=== PATIENT | female | born 1985 | race Caucasian/White ===

== ENCOUNTER 2017-05-29 00:34 | Emergency (ER) | payer OTHER ==
[2017-05-29 01:10] VITALS: BP 108/74; PULSE 86; TEMP 98.7; BMI 48.3
[2017-05-29] MEDS ORDERED: SODIUM CHLORIDE 1,000 ML IV STA (01:22)
--- NOTE | 2017-05-29 01:22 | PDOC ---
History of Present Illness - History of Present Illness Initial Comments: 05/29/17 01:32 The patient is a 31 year old female, with a significant past medical history of Cholecystectomy , who presents to the emergency department with diffuse abdominal pain, nausea, vomiting, and diarrhea around 10:00 pm. Patient states she was eating popcorn earlier when she began to feel sick. She became nauseous, vomited (2x), and several episodes of diarrhea. She states she currently feels nauseous which worsens when supine. She states she took Pepto Bismol but it made her symptoms worse. Patient states associated chest discomfort while in the ER. She denies recent fevers, chills, headache or dizziness. She denies recent dysuria, frequency, urgency or hematuria. She denies recent shortness of breath. Allergies: NKA Past surgical history: Back surgery L4/L5, Lebanese butt lift/fat transfer. Social history: Nonsmoker. Denies EtOH use and recreational drug use. Primary Care Physician: Angelica Stone 05/29/17 01:52 <Beth Barragan - Last Filed: 05/29/17 01:52> <Ce Malave - Last Filed: 05/29/17 03:09> - General Chief Complaint: Nausea Stated Complaint: NAUSEA/PALPITATIONS Time Seen by Provider: 05/29/17 00:44 Past History <Beth Barragan - Last Filed: 05/29/17 01:52> - Surgical History Cholecystectomy: Yes - Suicide/Smoking/Psychosocial Hx Smoking Status: No Smoking History: Unknown if ever smoked Have you smoked in the past 12 months: No Number of Cigarettes Smoked Daily: 0 Information on smoking cessation initiated: No Hx Alcohol Use: No Drug/Substance Use Hx: No Substance Use Type: None <Ce Malave - Last Filed: 05/29/17 03:09> - Past Medical History Allergies/Adverse Reactions: Allergies Allergy/AdvReac Type Severity Reaction Status Date / Time No Known Allergies Allergy Verified 05/29/17 01:45 Home Medications: Ambulatory Orders Ondansetron [Zofran Odt -] 4 mg SL BID PRN #7 od.tablet 09/27/14 Oxycodone HCl/Acetaminophen [Percocet 5/325 -] 1 tab PO Q4H PRN 09/27/14 Nitrofurantoin Monohyd/M-Cryst [Macrobid -] 100 mg PO BID #14 capsule 09/07/15 Review of Systems - Review of Systems Comments:: 05/29/17 01:32 CONSTITUTIONAL: Absent: fever, chills, diaphoresis, generalized weakness, malaise, loss of appetite HEENT: Absent: rhinorrhea, nasal congestion, throat pain, throat swelling, difficulty swallowing, mouth swelling, ear pain, eye pain, visual Changes CARDIOVASCULAR: Present: chest discomfort Absent: chest pain, syncope, palpitations, irregular heart rate, lightheadedness , peripheral edema RESPIRATORY: Absent: cough, shortness of breath, dyspnea with exertion, orthopnea, wheezing, stridor, hemoptysis GASTROINTESTINAL: Presnt: abdominal soreness/discomfort Absent: abdominal pain, abdominal distension, nausea, vomiting, diarrhea, constipation, melena, hematochezia GENITOURINARY: Absent: dysuria, frequency, urgency, hesitancy, hematuria, flank pain, genital pain MUSCULOSKELETAL: Absent: myalgia, arthralgia, joint swelling SKIN: Absent: rash, itching, pallor HEMATOLOGIC/IMMUNOLOGIC: Absent: easy bleeding, easy bruising, lymphadenopathy, frequent infections ENDOCRINE: Absent: unexplained weight gain, unexplained weight loss, heat intolerance, cold intolerance NEUROLOGIC: Absent: headache, focal weakness or paresthesias, dizziness, unsteady gait, seizure, mental status changes, bladder or bowel incontinence PSYCHIATRIC: Absent: anxiety, depression, suicidal or homicidal ideation, hallucinations. <Beth Barragan - Last Filed: 05/29/17 01:52> *Physical Exam - Vital Signs Last Vital Signs Temp Pulse Resp BP Pulse Ox 98.7 F 86 18 108/74 98 05/29/17 01:01 05/29/17 01:01 05/29/17 01:01 05/29/17 01:01 05/29/17 01:01 - Physical Exam Comments: 05/29/17 01:32 GENERAL: Well developed, well nourished. Awake and alert. No acute distress. HEENT: Normocephalic, atraumatic. PERRLA, EOMI. No conjunctival pallor. Sclera are non- icteric. Moist mucous membranes. Oropharynx is clear. NECK: Supple. Full ROM. No JVD. Carotid pulses 2+ and symmetric, without bruits. No thyromegaly. No lymphadenopathy. CARDIOVASCULAR: Regular rate and rhythm. No murmurs, rubs, or gallops. Distal pulses are 2+ and symmetric. PULMONARY: No evidence of respiratory distress. Lungs clear to auscultation bilaterally. No wheezing, rales or rhonchi. ABDOMINAL: +diffuse abdominal discomfort. Soft. N Non-distended. No rebound or guarding. No organomegaly. Normoactive bowel sounds. MUSCULOSKELETAL Normal range of motion at all joints. No bony deformities or tenderness. No CVA tenderness. EXTREMITIES: No cyanosis. No clubbing. No edema. No calf tenderness. SKIN: Warm and dry. Normal capillary refill. No rashes. No jaundice. NEUROLOGICAL: Alert, awake, appropriate. Cranial nerves 2-12 intact. No deficits to light touch and temperature in face, upper extremities and lower extremities. No motor deficits in the in face, upper extremities and lower extremities. Normoreflexic in the upper and lower extremities. Normal speech. Toes are down-going bilaterally. Gait is normal without ataxia. PSYCHIATRIC: Cooperative. Good eye contact. Appropriate mood and affect. <Beth Barragan - Last Filed: 05/29/17 01:52> - Vital Signs Last Vital Signs Temp Pulse Resp BP Pulse Ox 98.7 F 86 18 108/74 98 05/29/17 01:01 05/29/17 01:01 05/29/17 01:01 05/29/17 01:01 05/29/17 01:01 <Ce Malave - Last Filed: 05/29/17 03:09> ED Treatment Course - LABORATORY CBC & Chemistry Diagram: 05/29/17 01:32 05/29/17 01:32 <Beth Barragan - Last Filed: 05/29/17 01:52> - LABORATORY CBC & Chemistry Diagram: 05/29/17 01:32 05/29/17 01:32 <Ce Malave - Last Filed: 05/29/17 03:09> Medical Decision Making - Medical Decision Making 05/29/17 03:02 31 yo female dev nausea,vomiting and diarrhea this eveing with diffuse abd " aching" but no focal abdominal tenderness -she vomited several times and had 3 loose stools plan IVF,zofran,reassess <Ce Malave - Last Filed: 05/29/17 03:09> *DC/Admit/Observation/Transfer - Attestations Scribe Attestion: 05/29/17 01:33 Documentation prepared by Beth Barragan, acting as medical professionals for Ce Malave MD. <Beth Barragan - Last Filed: 05/29/17 01:52> <Ce Malave - Last Filed: 05/29/17 03:09> - Referrals Referrals: Angelica Stone MD [Primary Care Provider] -
[2017-05-29] MEDS ORDERED: ONDANSETRON 4 MG/2 ML VIAL IVPUSH ONE (01:23)
[2017-05-29] MEDS ORDERED: ONDANSETRON 4 MG/2 ML VIAL ONE ×2 (01:30→04:43)
[2017-05-29 01:40] LABS: BASOPHIL 0.6 % (0-2.0); EOSINOPHIL 3.9 % (0-4.5); MCH 26.5 pg (25.7-33.7); MCHC 33.4 g/dl (32.0-36.0); MEAN CELL VOLUME 79.3 fl (80-96); MEAN PLT VOLUME 8.2 fl (7.5-11.1); NEUTROPHILS 63.3 % (42.8-82.8); PLATELET COUNT 270 K/MM3 (134-434); RDW 13.3 % (11.6-15.6); WHITE BLOOD COUNT 7.7 K/mm3 (4.0-10.0)
[2017-05-29 01:47] LABS: URINE APPEARANCE CLEAR; URINE BILIRUBIN NEGATIVE (NEGATIVE); URINE BLOOD NEGATIVE (NEGATIVE); URINE COLOR STRAW; URINE GLUCOSE (UA) NEGATIVE (NEGATIVE); URINE KETONE NEGATIVE (NEGATIVE); URINE NITRITE NEGATIVE (NEGATIVE); URINE PROTEIN NEGATIVE (NEGATIVE); URINE UROBILINOGEN NEGATIVE mg/dL (0.2-1.0)
[2017-05-29 02:11] LABS: ALBUMIN 3.7 g/dl (3.4-5.0); ANION GAP 4 (8-16); BILIRUBIN,TOTAL 0.1 mg/dL (0.2-1.0); CALCIUM 8.2 mg/dL (8.5-10.1); CO2 27 mmol/L (21-32); CREATININE 0.6 mg/dL (0.55-1.02); GLUCOSE,RANDOM 102 mg/dL (74-106); SGOT/AST 10 U/L (15-37); SGPT/ALT 15 U/L (12-78); TOT PROT 7.1 g/dl (6.4-8.2)
[2017-05-29 02:12] LABS: ALK PHOS 101 U/L (45-117)
--- NOTE | 2017-05-29 05:07 | PDOC ---
*Physical Exam - Vital Signs Last Vital Signs Temp Pulse Resp BP Pulse Ox 98.7 F 86 18 108/74 98 05/29/17 01:01 05/29/17 01:01 05/29/17 01:01 05/29/17 01:01 05/29/17 01:01 ED Treatment Course - LABORATORY CBC & Chemistry Diagram: 05/29/17 01:32 05/29/17 01:32 - ADDITIONAL ORDERS Additional order review: Laboratory Results 05/29/17 05/29/17 05/29/17 01:36 01:32 01:32 Sodium 142 Potassium 4.2 Chloride 111 H Carbon Dioxide 27 Anion Gap 4 L BUN 8 D Creatinine 0.6 Creat Clearance w eGFR > 60 Random Glucose 102 Calcium 8.2 L Total Bilirubin 0.1 L D AST 10 L D ALT 15 D Alkaline Phosphatase 101 Total Protein 7.1 Albumin 3.7 Lipase 279 Serum , Qual Negative Urine Color Straw Urine Appearance Clear Urine pH 6.0 Ur Specific [place] 1.004 Urine Protein Negative Urine Glucose (UA) Negative Urine Ketones Negative Urine Blood Negative Urine Nitrite Negative Urine Bilirubin Negative Urine Urobilinogen Negative 05/29/17 01:32 RBC 4.64 MCV 79.3 L MCHC 33.4 RDW 13.3 MPV 8.2 Neutrophils % 63.3 Lymphocytes % 24.0 D Monocytes % 8.2 Eosinophils % 3.9 Basophils % 0.6 - Medications Given in the ED: ED Medications Discontinued Medications Generic Name Dose Route Start Last Admin Trade Name Freq PRN Reason Stop Dose Admin Sodium Chloride 1,000 mls @ 1,000 mls/hr 05/29/17 01:22 05/29/17 01:39 Normal Saline - IV 05/29/17 02:21 1,000 mls/hr ASDIR STA Administration Ondansetron HCl 4 mg 05/29/17 01:23 05/29/17 01:39 Zofran Injection IVPUSH 05/29/17 01:24 4 mg ONCE ONE Administration *DC/Admit/Observation/Transfer Diagnosis at time of Disposition: Nausea, Gastritis - Discharge Dispostion Disposition: HOME Condition at time of disposition: Improved Admit: No - Prescriptions Prescriptions: Ondansetron [Zofran *Odt*] 8 mg SL BID PRN #10 od.tablet PRN Reason: Nausea And/Or Vomiting - Referrals Referrals: Angelica Stone MD [Primary Care Provider] - - Patient Instructions Printed Discharge Instructions: DI for Nausea -- Adult, DI for Gastritis - Post Discharge Activity
[2017-05-29 09:08] LABS: URINE LEUK ESTERASE Negative (NEGATIVE)
--- NOTE | 2017-05-29 11:57 | EKG ---
Test Reason : Blood Pressure : / mmHG Vent. Rate : 083 BPM Atrial Rate : 083 BPM P-R Int : 118 ms QRS Dur : 068 ms QT Int : 376 ms P-R-T Axes : 038 060 036 degrees QTc Int : 441 ms POOR DATA QUALITY, INTERPRETATION MAY BE ADVERSELY AFFECTED NORMAL SINUS RHYTHM OTHERWISE NORMAL ECG Confirmed by LENIN NUGENT, MARA ([id number]) on 05/29/2017 11:57:37 AM Referred By: Confirmed By:MARA PHELPS MD
== END 2017-05-29 05:22 | disposition home or self-care (01) ==
LOC: JER 00:34
DX: K29.70 Gastritis, unspecified, without bleeding (principal); R11.0 Nausea
CPT/HCPCS: 36415; 80053; 81003; 83690; 84703; 85025; 93005; 93010; 99281-25

== ENCOUNTER 2017-08-25 03:05 | Emergency (ER) | payer OTHER ==
[2017-08-25] MEDS ORDERED: ONDANSETRON 4 MG/2 ML VIAL IVPUSH ONE ×2 (03:37→05:05)
[2017-08-25 03:39] VITALS: BP 111/73; PULSE 97; TEMP 98.2; BMI 32.4
[2017-08-25] MEDS ORDERED: SODIUM CHLORIDE 1,000 ML IV STA (03:39)
--- NOTE | 2017-08-25 03:42 | PDOC ---
Attending Attestation - Resident Resident Name: Reynaldo Gordillo - ED Attending Attestation I have performed the following: I have examined & evaluated the patient, The case was reviewed & discussed with the resident, I agree w/resident's findings & plan - HPI HPI: 08/25/17 05:18 Pt drank too much and now she feels ill. - Physicial Exam PE: 08/25/17 05:19 Exam is normal - Medical Decision Making 08/25/17 05:19 Labs normal. Pt was hydrated with NSS and she is feeling better. D/C home
--- NOTE | 2017-08-25 03:47 | PDOC ---
History of Present Illness - General Chief Complaint: Pain, Acute Stated Complaint: VOMITING - History of Present Illness Initial Comments: Ms. Colunga is a 32yo F with a PMHx of Cholecystectomy who presents w/ abdominal pain, vomitting, and diarrhea for the past 2 hours. Pt states that she drank a small amount of alcohol in a mixed drink with eggs and coconut milk. Subsequently experienced diffuse abdominal pain, NBNB emesis, and diarrhea. Currently endorses fevers, chills, malaise. Has not been able to keep anything down. Pt states that for the past 2 years, she started to have similar insensitivity to mixed drinks, presenting with similar symptoms of vomitting and diarrhea. During the examination, patient was holding emesis mendoza, multiple instances where she was about to vomit. PMD - Angelica Stone Allergies - NKDA SH - Nonsmoker, no drugs SgHx - Back surgery L4/L5, Liposuction, CCY Past History - Past Medical History Allergies/Adverse Reactions: Allergies Allergy/AdvReac Type Severity Reaction Status Date / Time No Known Allergies Allergy Verified 08/25/17 03:22 Home Medications: Ambulatory Orders Ondansetron [Zofran *Odt*] 8 mg SL BID PRN #14 od.tablet 08/25/17 - Surgical History Cholecystectomy: Yes - Suicide/Smoking/Psychosocial Hx Smoking Status: No Smoking History: Never smoked Have you smoked in the past 12 months: No Number of Cigarettes Smoked Daily: 0 Information on smoking cessation initiated: No Hx Alcohol Use: No Drug/Substance Use Hx: No Substance Use Type: None *Physical Exam - Vital Signs Last Vital Signs Temp Pulse Resp BP Pulse Ox 98.2 F 97 H 16 111/73 98 08/25/17 03:19 08/25/17 03:19 08/25/17 03:19 08/25/17 03:19 08/25/17 03:19 - Physical Exam Comments: GEN: AAOx3, Appears ill, covers over patient, in mild distress HEENT: PERRLA, EOMi CV: S1, S2, RRR LUNG: CTABL ABD: Soft, Diffuse TTP MSK: No edema, no erythema NEURO: CN 2-12 grossly intact ED Treatment Course - LABORATORY CBC & Chemistry Diagram: 08/25/17 04:09 08/25/17 04:09 Medical Decision Making - Medical Decision Making 32yo F with PMHx of CCY, presenting with multiple episdoes of vomiting and diarrhea after having a mixed drink. Similar episodes in past after similar drinks. Likely diagnosis is gastroenteritis. -- CBC, CMP -- Urine -- Zofran IVP + IVF 1L bolus Will re-evaluate 08/25/17 05:08 On re-evaluation patient feels improved. IVF still running. Still feels slightly nauseous. Will give another dose of IV Zofran and finish IVF. Will give prescription for Zofran and dispo home. Encouraged not to drink alcohol. *DC/Admit/Observation/Transfer Diagnosis at time of Disposition: Gastroenteritis and colitis, toxic - Discharge Dispostion Disposition: HOME Admit: No - Prescriptions Prescriptions: Ondansetron [Zofran *Odt*] 8 mg SL BID PRN #14 od.tablet PRN Reason: Nausea - Referrals Referrals: Angelica Stone MD [Non Staff, Medical] - 14 days - Patient Instructions Printed Discharge Instructions: DI for Viral Gastroenteritis -- Adult - Post Discharge Activity
[2017-08-25] MEDS ORDERED: ONDANSETRON 4 MG/2 ML VIAL ONE ×3 (03:56→05:19)
[2017-08-25 04:24] LABS: BASO % 1.1 % (0-2.0); EOS % 1.3 % (0-4.5); HEMATOCRIT 34.5 % (32.4-45.2); HEMOGLOBIN 11.3 GM/dL (10.7-15.3); LYMPH % 18.4 % (8-40); MCHC 32.8 g/dl (32.0-36.0); MEAN CELL VOLUME 79.2 fl (80-96); MEAN PLT VOLUME 9.2 fl (7.5-11.1); MONO % 6.1 % (3.8-10.2); NEUT % 73.1 % (42.8-82.8); PLATELET COUNT 265 K/MM3 (134-434); RBC 4.36 M/mm3 (3.60-5.2); RDW 13.6 % (11.6-15.6); WHITE BLOOD COUNT 6.9 K/mm3 (4.0-10.0)
[2017-08-25 05:09] LABS: ALBUMIN 3.6 g/dl (3.4-5.0); AMYLASE 52 U/L (25-115); ANION GAP 10 (8-16); BLOOD UREA NITROGEN 9 mg/dL (7-18); CALCIUM 8.9 mg/dL (8.5-10.1); CHLORIDE 108 mmol/L (98-107); CO2 24 mmol/L (21-32); CREATININE 0.7 mg/dL (0.55-1.02); GLUCOSE,RANDOM 96 mg/dL (74-106); LIPASE 233 U/L (73-393); SGPT/ALT 22 U/L (12-78); SODIUM 142 mmol/L (136-145)
[2017-08-25 05:10] LABS: SGOT/AST 19 U/L (15-37)
[2017-08-25 05:11] LABS: ALK PHOS 81 U/L (45-117); BILIRUBIN,TOTAL 0.2 mg/dL (0.2-1.0); TOT PROT 6.8 g/dl (6.4-8.2)
[2017-08-25] MEDS ORDERED: ALBUTEROL SO4 2.5/IPRATROPIUM 0.5 INH SOL 3 ML VIAL.NEB. NEB ONE (06:45)
== END 2017-08-25 05:30 | disposition home or self-care (01) ==
LOC: JER 03:05
PROC: 3E0337Z Introduction of Electrolytic and Water Balance Substance into Peripheral Vein, Percutaneous Approach (ICD-10-PCS; principal; 2017-08-25)
PROC: 3E033GC Introduction of Other Therapeutic Substance into Peripheral Vein, Percutaneous Approach (ICD-10-PCS; 2017-08-25)
DX: K52.1 Toxic gastroenteritis and colitis (principal)
CPT/HCPCS: 36415; 80053; 82150; 83690; 84703; 85025; 96361; 96374; 96376; 99282-25

== ENCOUNTER 2018-10-19 04:47 | Emergency (ER) | payer OTHER ==
[2018-10-19 04:59] VITALS: BMI 34.9
--- NOTE | 2018-10-19 05:22 | PDOC ---
History of Present Illness - General Chief Complaint: Pain, Acute Stated Complaint: ABD PAIN/VOMITING/DIARRHEA Time Seen by Provider: 10/19/18 05:19 - History of Present Illness Initial Comments: 10/19/18 05:21 33 yo F with h/o cholecystectomy who p/w LLQ abdominal pain, vomiting. Patient reports acute onset of worsening, crampy, spasmodic, LLQ abdominal pain, beginning 10/17/18, with no identifiable triggers. Also endorses multiple 5+ episodes of NBNB emesis and loose watery, non bloody, non mucoid stools .Decreased PO intake and appetite. Attempted Motrin for relief. Denies recent travels or sick contacts. Patient denies THORNE, vision change, palpitations, cough, wheezing, orthopena, PND , leg swelling/pain, F/C, CP, SOB, urinary complaints, hematuria, BPR, vaginal bleeding/vaginal itching, constipation, lightheadedness, weakness, sensory changes. PMHx: as noted above ROS: as noted Allergies: NKDA Past History - Past Medical History Allergies/Adverse Reactions: Allergies Allergy/AdvReac Type Severity Reaction Status Date / Time No Known Allergies Allergy Verified 10/19/18 04:58 Home Medications: Ambulatory Orders Ondansetron [Zofran *Odt*] 8 mg SL BID PRN #14 od.tablet 08/25/17 COPD: No - Surgical History Cholecystectomy: Yes - Immunization History Immunization Up to Date: Yes - Suicide/Smoking/Psychosocial Hx Smoking Status: No Smoking History: Never smoked Have you smoked in the past 12 months: No Number of Cigarettes Smoked Daily: 0 Information on smoking cessation initiated: No Hx Alcohol Use: No Drug/Substance Use Hx: No Substance Use Type: None Review of Systems - Review of Systems Comments:: 10/19/18 05:22 GENERAL/CONSTITUTIONAL: No fever or chills. No weakness. HEAD, EYES, EARS, NOSE AND THROAT: No change in vision. No ear pain or discharge. No sore throat. CARDIOVASCULAR: No chest pain or shortness of breath RESPIRATORY: No cough, wheezing, or hemoptysis. GASTROINTESTINAL: + Abdominal pain, nausea, vomiting, diarrhea. No constipation. GENITOURINARY: No dysuria, frequency, or change in urination. MUSCULOSKELETAL: No joint or muscle swelling or pain. No neck or back pain. SKIN: No rash NEUROLOGIC: No headache, vertigo, loss of consciousness, or change in strength/ sensation. ENDOCRINE: No increased thirst. No abnormal weight change HEMATOLOGIC/LYMPHATIC: No anemia, easy bleeding, or history of blood clots. ALLERGIC/IMMUNOLOGIC: No hives or skin allergy. *Physical Exam - Vital Signs Last Vital Signs Temp Pulse Resp BP Pulse Ox 98.2 F 70 18 123/60 97 10/19/18 04:58 10/19/18 04:58 10/19/18 04:58 10/19/18 04:58 10/19/18 04:58 - Physical Exam Comments: 10/19/18 05:22 GENERAL: Awake, alert, and fully oriented, in no acute distress HEAD: No signs of trauma, normocephalic, atraumatic EYES: PERRLA, EOMI, sclera anicteric, conjunctiva clear ENT: Auricles normal inspection, hearing grossly normal, nares patent, oropharynx clear without exudates. Moist mucosa NECK: Normal ROM, supple, no lymphadenopathy, JVD, or masses LUNGS: No distress, speaks full sentences, clear to auscultation bilaterally HEART: Regular rate and rhythm, normal S1 and S2, no murmurs, rubs or gallops, peripheral pulses normal and equal bilaterally. ABDOMEN: Soft, nontender, normoactive bowel sounds. No guarding, no rebound. No masses. Neg CVA ttp. EXTREMITIES : Normal inspection, Normal range of motion, no edema. No clubbing or cyanosis. NEUROLOGICAL: Cranial nerves II through XII grossly intact. Normal speech, normal gait, no focal sensorimotor deficits SKIN: Warm, Dry, normal turgor, no rashes or lesions noted Moderate Sedation - Procedure Monitoring Vital Signs: Procedure Monitoring Vital Signs Temperature 98.2 F 10/19/18 04:58 Pulse Rate 70 10/19/18 04:58 Respiratory Rate 18 10/19/18 04:58 Blood Pressure 123/60 10/19/18 04:58 O2 Sat by Pulse Oximetry (%) 97 10/19/18 04:58 ED Treatment Course - LABORATORY CBC & Chemistry Diagram: 10/19/18 05:54 10/19/18 05:54 Medical Decision Making - Medical Decision Making 10/19/18 06:02 33 yo F with h/o cholecystectomy who p/wacute onset of worsening, crampy, spasmodic, LLQ abdominal pain, vomiting, diarrhea, beginning 10/17/18. Vitals wnl, AF, A&Ox3, physical exam unremarkable. Will consider diverticulitis, cystitis, gastroenteritis, nephrolithaisis. Will provide adequate analgesia, anti-emetic control, and IVF resuscitation. Ed Course: 10/19/18 06:10 Zofran, Tylenol, NS 10/19/18 06:50 CBC,CMP: Unremarkable UA: Neg HCG: Neg Pending CTAP. Patient stable. Endorsed to day team. *DC/Admit/Observation/Transfer Diagnosis at time of Disposition: Abdominal pain Qualifiers: Abdominal location: left lower quadrant Qualified Code(s): R10.32 - Left lower quadrant pain - Discharge Dispostion Condition at time of disposition: Stable Decision to Admit order: No - Referrals Referrals: Angelica Stone MD [Primary Care Provider] - - Patient Instructions Printed Discharge Instructions: DI for Abdominal Pain-Adult Additional Instructions: Please return to the emergency department with any new or worsening symptoms or concerns. Please follow up with your primary care physician within 72 hours. - Post Discharge Activity
[2018-10-19] MEDS ORDERED: SODIUM CHLORIDE 1,000 ML IV STA (05:51)
[2018-10-19] MEDS ORDERED: ONDANSETRON 4 MG/2 ML VIAL IVPUSH ONE (05:51)
[2018-10-19] MEDS ORDERED: ACETAMINOPHEN 1000 MG/100 ML VIAL (NON FORMULARY) IVPB ONE (05:51)
[2018-10-19] MEDS ORDERED: ONDANSETRON 4 MG/2 ML VIAL ONE (06:01)
[2018-10-19] MEDS ORDERED: ACETAMINOPHEN INJECTION 100 ML IVPB ONE (06:01)
[2018-10-19 06:03] LABS: BASO % 0.6 % (0-2.0); EOS % 1.1 % (0-4.5); HEMATOCRIT 34.5 % (32.4-45.2); HEMOGLOBIN 11.7 GM/dL (10.7-15.3); LYMPH % 16.2 % (8-40); MCH 25.3 pg (25.7-33.7); MCHC 33.9 g/dl (32.0-36.0); MEAN CELL VOLUME 74.6 fl (80-96); MEAN PLT VOLUME 7.9 fl (7.5-11.1); MONO % 6.3 % (3.8-10.2); NEUT % 75.8 % (42.8-82.8); PLATELET COUNT 291 K/MM3 (134-434); RBC 4.63 M/mm3 (3.60-5.2); RDW 15.1 % (11.6-15.6); WHITE BLOOD COUNT 6.6 K/mm3 (4.0-10.0)
--- NOTE | 2018-10-19 06:18 | PDOC ---
Attending Attestation - Resident Resident Name: Jg Brian - ED Attending Attestation I have performed the following: I have examined & evaluated the patient, The case was reviewed & discussed with the resident, I agree w/resident's findings & plan, Exceptions are as noted - HPI HPI: 10/19/18 06:15 33 F with LLQ pain, nausea, vomiting, and diarrhea since yesterday. Pt reports colicky pain in her LLQ associated with diarrhea. Also endorses nausea with a few episodes of nonbloody vomiting. Endorses subjective fevers. Denies dysuria. Denies vaginal bleeding/discharge. Denies flank pain. No h/o abdominal surgeries. - Physicial Exam PE: 10/19/18 06:16 GENERAL: Awake, alert, and fully oriented, in no acute distress. HEAD: No signs of trauma EYES: PERRLA, EOMI, sclera anicteric, conjunctiva clear ENT: Auricles normal inspection, hearing grossly normal, nares patent, oropharynx clear without exudates. Moist mucosa NECK: Nontender, no stepoffs, Normal ROM, supple, no lymphadenopathy, JVD, or masses LUNGS: Breath sounds equal, clear to auscultation bilaterally. No wheezes, and no crackles HEART: Regular rate and rhythm, normal S1 and S2, no murmurs, rubs or gallops ABDOMEN: NO tenderness, normoactive bowel sounds. No guarding, no rebound. No masses EXTREMITIES: Normal range of motion, no edema. No clubbing or cyanosis. No cords, erythema, or tenderness NEUROLOGICAL: Cranial nerves II through XII intact. 5/5 strength and sensation in all extremities, Normal speech, normal gait, normal cerebellar function SKIN: Warm, Dry, normal turgor, no rashes or lesions noted. : no CMT, normal discharge, os closed - Medical Decision Making 10/19/18 06:16 33 F with LLQ pain, N+V+D. Suspect viral gastroenteritis. Given LLQ pain, will r /o colitis vs diverticulitis. Low suspicion for pelvic pathology given benign exam. - Labs, UA, UPT - CTAP - IVF, tylenol, zofran Pt signed out to oncoming attending at 7am, pending labs, imaging, and re- evaluation
[2018-10-19 06:32] LABS: ALBUMIN 3.8 g/dl (3.4-5.0); ALK PHOS 90 U/L (45-117); ANION GAP 10 MMOL/L (8-16); BILIRUBIN,TOTAL 0.2 mg/dL (0.2-1); BLOOD UREA NITROGEN 12 mg/dL (7-18); CALCIUM 8.9 mg/dL (8.5-10.1); CHLORIDE 108 mmol/L (98-107); CO2 23 mmol/L (21-32); CREATININE 0.6 mg/dL (0.55-1.3); GLUCOSE,RANDOM 101 mg/dL (74-106); SGOT/AST 16 U/L (15-37); SGPT/ALT 18 U/L (13-61); SODIUM 141 mmol/L (136-145); TOT PROT 7.4 g/dl (6.4-8.2)
[2018-10-19 06:45] LABS: URINE APPEARANCE CLEAR; URINE BILIRUBIN NEGATIVE (<2.0 mg/dL); URINE COLOR YELLOW; URINE GLUCOSE (UA) NEGATIVE (NEGATIVE); URINE KETONE 1+ (NEGATIVE); URINE LEUK ESTERASE NEGATIVE (NEGATIVE); URINE NITRITE NEGATIVE (NEGATIVE); URINE PROTEIN NEGATIVE (NEGATIVE); URINE UROBILINOGEN 0.2 mg/dL (0.2-1.0)
--- NOTE | 2018-10-19 07:52 | PDOC ---
*Physical Exam - Vital Signs Last Vital Signs Temp Pulse Resp BP Pulse Ox 98.2 F 70 18 123/60 97 10/19/18 04:58 10/19/18 04:58 10/19/18 04:58 10/19/18 04:58 10/19/18 04:58 ED Treatment Course - LABORATORY CBC & Chemistry Diagram: 10/19/18 05:54 10/19/18 05:54 - ADDITIONAL ORDERS Additional order review: Laboratory Results 10/19/18 10/19/18 10/19/18 06:34 05:54 05:54 Sodium Potassium Chloride Carbon Dioxide Anion Gap BUN Creatinine Creat Clearance w eGFR Random Glucose Calcium Total Bilirubin AST ALT Alkaline Phosphatase Total Protein Albumin Lipase 164 Serum , Qual Negative Urine Color Yellow Urine Appearance Clear Urine pH 5.0 Ur Specific [place] 1.011 Urine Protein Negative Urine Glucose (UA) Negative Urine Ketones 1+ H Urine Blood Negative Urine Nitrite Negative Urine Bilirubin Negative Urine Urobilinogen 0.2 Ur Leukocyte Esterase Negative 10/19/18 05:54 Sodium 141 Potassium 4.0 Chloride 108 H Carbon Dioxide 23 Anion Gap 10 BUN 12 Creatinine 0.6 Creat Clearance w eGFR 116.60 Random Glucose 101 Calcium 8.9 Total Bilirubin 0.2 AST 16 ALT 18 Alkaline Phosphatase 90 Total Protein 7.4 Albumin 3.8 Lipase Serum , Qual Urine Color Urine Appearance Urine pH Ur Specific [place] Urine Protein Urine Glucose (UA) Urine Ketones Urine Blood Urine Nitrite Urine Bilirubin Urine Urobilinogen Ur Leukocyte Esterase 10/19/18 05:54 RBC 4.63 MCV 74.6 L MCHC 33.9 RDW 15.1 D MPV 7.9 D Neutrophils % 75.8 Lymphocytes % 16.2 Monocytes % 6.3 Eosinophils % 1.1 Basophils % 0.6 - Medications Given in the ED: ED Medications Discontinued Medications Generic Name Dose Route Start Last Admin Trade Name Freq PRN Reason Stop Dose Admin Acetaminophen 1,000 mg 10/19/18 05:51 10/19/18 06:11 Ofirmev Injection - IVPB 10/19/18 05:52 1,000 mg ONCE ONE Administration Sodium Chloride 1,000 mls @ 1,000 mls/hr 10/19/18 05:51 10/19/18 06:11 Normal Saline - IV 10/19/18 06:50 1,000 mls/hr ASDIR STA Administration Ondansetron HCl 4 mg 10/19/18 05:51 10/19/18 06:12 Zofran Injection IVPUSH 10/19/18 05:52 4 mg ONCE ONE Administration Medical Decision Making - Medical Decision Making 10/19/18 07:[address] Brian. Patient is 33F with LLQ abdominal pain. Nontender on exam. Labs wnl, reviewed. Pending CT scan. 10/19/18 09:31 CT shows no abnormalities from [facility]. Patient reassessed, pain has resolved. Will discharge home with return precautions. *DC/Admit/Observation/Transfer Diagnosis at time of Disposition: Abdominal pain Qualifiers: Abdominal location: left lower quadrant Qualified Code(s): R10.32 - Left lower quadrant pain - Discharge Dispostion Condition at time of disposition: Stable - Referrals Referrals: Angelica Stone MD [Primary Care Provider] - - Patient Instructions Printed Discharge Instructions: DI for Abdominal Pain-Adult Additional Instructions: Please return to the emergency department with any new or worsening symptoms or concerns. Please follow up with your primary care physician within 72 hours. - Post Discharge Activity
[2018-10-19 09:46] VITALS: BP 100/58; PULSE 89; TEMP 98
== END 2018-10-19 09:46 | disposition home or self-care (01) ==
LOC: JER 04:47
PROC: 3E033GC Introduction of Other Therapeutic Substance into Peripheral Vein, Percutaneous Approach (ICD-10-PCS; principal; 2018-10-19)
PROC: 3E033NZ Introduction of Analgesics, Hypnotics, Sedatives into Peripheral Vein, Percutaneous Approach (ICD-10-PCS; 2018-10-19)
DX: R10.32 Left lower quadrant pain (principal)
CPT/HCPCS: 36415; 74177-TC; 80053; 81003; 83690; 84703; 85025; 96374; 96375; 99283-25; J0131; J7030

== ENCOUNTER 2019-06-30 20:20 | Emergency (ER) | payer OTHER ==
[2019-06-30 20:29] VITALS: BP 111/77; PULSE 72; TEMP 97.7; BMI 29.2
[2019-06-30] MEDS ORDERED: SODIUM CHLORIDE 1,000 ML IV STA (20:29)
[2019-06-30] MEDS ORDERED: KETOROLAC TROMETHAMINE 30 MG/1 ML VIAL ONE (20:41)
[2019-06-30] MEDS ORDERED: KETOROLAC TROMETHAMINE 30 MG/1 ML VIAL IVPUSH ONE (20:44)
[2019-06-30 21:31] LABS: EPITHELIAL CELLS FEW /hpf
[2019-06-30] MEDS ORDERED: cefTRIAXone SODIUM 1 GM VIAL ONE (23:04)
[2019-06-30] MEDS ORDERED: CEFTRIAXONE 1,000 MG in DEXTROSE 5%-WATER - 50 ML IVPB ONE (23:04)
--- NOTE | 2019-07-01 03:23 | PDOC ---
Documentation entered by Irma Kelly SCRIBE, acting as scribe for Paty Mendiola MD. Paty Mendiola MD: This documentation has been prepared by the milieRobin Joy, SCRIBE, under my direction and personally reviewed by me in its entirety. I confirm that the documentation accurately reflects all work, treatment, procedures, and medical decision making performed by me. History of Present Illness - General Chief Complaint: Pain, Acute Stated Complaint: LEFT FLANK PAIN, BLOOD IN URINE History Source: Patient Exam Limitations: No Limitations - History of Present Illness Initial Comments: 06/30/19 21:32 The patient is a 33 year old female with significant past medical history of cholecystectomy who presents to the ED today with evaluation of left flank pain and microscopic hematuria from an urgent care. As per patient, she started feeling vaginal discomfort x1 week ago with urinary frequency and burning. Patient endorses pain started to slowly radiate higher up to her left flank since. Patient describes the pain as being knocked off her feet sort of pain and was unable to work. Patient adds that today she has chills, shaking, and loss of appetite. As per patient, her last menstrual cycle was 1-2 weeks ago. Patient states she is with one sexual partner. Patient denies any medication, condom use or contraceptives. Patient adds she has a history of UTI. The patient denies chest pain, shortness of breath, headache and dizziness. Denies fever, nausea, vomiting, diarrhea and constipation. Denies vaginal discharge. Allergies: NKA Surgical History: cholecystectomy, back and cosmetic surgery. Social History: No alcohol, drug, or tobacco use. Past History - Past Medical History Allergies/Adverse Reactions: Allergies Allergy/AdvReac Type Severity Reaction Status Date / Time No Known Allergies Allergy Verified 10/19/18 04:58 Home Medications: Ambulatory Orders Ondansetron [Zofran *Odt*] 8 mg SL BID PRN #14 od.tablet 08/25/17 Ciprofloxacin [Cipro (Restricted To Id)] 500 mg PO Q12H #14 tablet 06/30/19 COPD: No - Surgical History Cholecystectomy: Yes - Immunization History Immunization Up to Date: Yes - Psycho Social/Smoking Cessation Hx Smoking Status: No Smoking History: Never smoked Have you smoked in the past 12 months: No Number of Cigarettes Smoked Daily: 0 Hx Alcohol Use: No Drug/Substance Use Hx: No Substance Use Type: None Review of Systems - Review of Systems Able to Perform ROS?: Yes Comments:: 06/30/19 21:32 CONSTITUTIONAL: +chills, +shaking Absent: fever, diaphoresis, generalized weakness, malaise, loss of appetite HEENT: Absent: rhinorrhea, nasal congestion, throat pain, throat swelling, difficulty swallowing, mouth swelling, ear pain, eye pain, visual Changes CARDIOVASCULAR: Absent: chest pain, syncope, palpitations, irregular heart rate, lightheadedness , peripheral edema RESPIRATORY: Absent: cough, shortness of breath, dyspnea with exertion, orthopnea, wheezing, stridor, hemoptysis GASTROINTESTINAL: Absent: nausea, vomiting, diarrhea, constipation, melena, hematochezia GENITOURINARY: +vaginal discomfort, dysuria, frequency, urgency, microscopic hematuria, left flank pain Absent: genital pain MUSCULOSKELETAL: Absent: myalgia, arthralgia, joint swelling SKIN: Absent: rash, itching, pallor HEMATOLOGIC/IMMUNOLOGIC: Absent: easy bleeding, easy bruising, lymphadenopathy, frequent infections ENDOCRINE: Absent: unexplained weight gain, unexplained weight loss, heat intolerance, cold intolerance NEUROLOGIC: Absent: headache, focal weakness or paresthesias, dizziness, unsteady gait, seizure, mental status changes, bladder or bowel incontinence PSYCHIATRIC: Absent: anxiety, depression, suicidal or homicidal ideation, hallucinations. All systems are reviewed and negative except as noted in the HPI. 06/30/19 21:50 *Physical Exam - Vital Signs Last Vital Signs Temp Pulse Resp BP Pulse Ox 97.7 F 72 16 111/77 100 06/30/19 20:23 06/30/19 20:23 06/30/19 20:23 06/30/19 20:23 06/30/19 20:23 - Physical Exam GENERAL: Adult female, alert and oriented x3, no acute distress HEAD: Normal with no signs of trauma. EYES: PERRLA, EOMI, sclera anicteric, conjunctiva clear. ENT: Ears normal, nares patent, oropharynx clear without exudates. Moist mucous membranes. NECK: Normal range of motion, supple without lymphadenopathy, JVD, or masses. LUNGS: Breath sounds equal, clear to auscultation bilaterally. No wheezes, and no crackles. HEART:Regular rate and rhythm, normal S1 and S2 without murmur, rub or gallop. ABDOMEN:.normal bowel sounds No guarding,tenderness or rebound.No masses No distention. EXTREMITIES: Normal range of motion, no edema. No clubbing or cyanosis. No erythema, or tenderness. NEUROLOGICAL: Cranial nerves II through XII grossly intact. Normal speech. No focal neurological deficits. MUSCULOSKELETAL: Back non-tender to palpation, no CVA tenderness SKIN: Warm, Dry, normal turgor, no rashes or lesions noted. ED Treatment Course - ADDITIONAL ORDERS Additional order review: Laboratory Results 06/30/19 06/30/19 20:30 20:30 Urine Color Yellow Urine Appearance Slightly Urine pH 6.0 Urine Protein Negative Urine Glucose (UA) Negative Urine Ketones Negative Urine Blood 2+ H Urine Nitrite Negative Urine Bilirubin Negative Urine Urobilinogen 0.2 Ur Leukocyte Esterase 3+ Urine RBC 5-10 Urine WBC 40-60 Ur Transition Epith Cell Few Urine Bacteria Moderate Urine HCG, Qual Negative - RADIOLOGY Radiology Studies Ordered: Category Date Time Status SPIRAL- RENAL-STONE CT [CT] Stat CT Scan 06/30/19 21:12 Completed - Medications Given in the ED: ED Medications Discontinued Medications Generic Name Dose Route Start Last Admin Trade Name Freq PRN Reason Stop Dose Admin Sodium Chloride 1,000 mls @ 1,000 mls/hr 06/30/19 20:29 06/30/19 20:44 Normal Saline - IV 06/30/19 21:28 1,000 mls/hr ASDIR STA Administration Ketorolac Tromethamine 30 mg 06/30/19 20:44 06/30/19 20:50 Toradol Injection - IVPUSH 06/30/19 20:45 30 mg ONCE ONE Administration ED Progress Note - Progress Note Progress Note: Urinalysis consistent with UTI with WBC and RBC seen in microscopic with few epithelial cells but many bacteria Urine sent for culture and sensitivity Because patient had severe flank pain, UTI with obstruction must be ruled out: Renal stone protocol CT ordered , Renal stone protocol CT negative for evidence of ureteral stone or hydronephrosis. No evidence of perinephric inflammation or abscess. Clinical presentation most consistent with urinary tract infection, suggestive of early upper tract infection. Patient will be given 1 dose of Rocephin 1 g IV Prescription for ciprofloxacin 500 mg twice a day for 1 week sent to her pharmacy. The patient should return to the emergency room if she has worsening pain or develops high fever, vomiting Discharge - Discharge Information Problems reviewed: Yes Clinical Impression/Diagnosis: UTI (urinary tract infection) Qualifiers: Urinary tract infection type: site unspecified Hematuria presence: without hematuria Qualified Code(s): N39.0 - Urinary tract infection, site not specified Condition: Stable Disposition: HOME - Additional Discharge Information Prescriptions: Ciprofloxacin [Cipro (Restricted To Id)] 500 mg PO Q12H #14 tablet - Follow up/Referral - Patient Discharge Instructions Patient Printed Discharge Instructions: Urinary Tract Infection Additional Instructions: Rest; drink plenty of water Cipro 500 mg twice a day for 1 week; next dose tomorrow morning Tylenol/Motrin/Aleve as needed for pain No work tomorrow Return to ER if you have worsening pain/fever/vomiting Follow-up with your doctor within the next 2 to 3 days - Post Discharge Activity Work/Back to School Note: Back to Work
== END 2019-06-30 23:46 | disposition home or self-care (01) ==
LOC: FER 20:20
PROC: 3E03329 Introduction of Other Anti-infective into Peripheral Vein, Percutaneous Approach (ICD-10-PCS; principal; 2019-06-30)
PROC: 3E0333Z Introduction of Anti-inflammatory into Peripheral Vein, Percutaneous Approach (ICD-10-PCS; 2019-06-30)
PROC: 3E0337Z Introduction of Electrolytic and Water Balance Substance into Peripheral Vein, Percutaneous Approach (ICD-10-PCS; 2019-06-30)
DX: N39.0 Urinary tract infection, site not specified (principal)
CPT/HCPCS: 74176-TC; 81003; 81015; 84703; 87086; 87186; 99282-25; J7030

== ENCOUNTER 2019-11-20 15:30 | Emergency (ER) | payer OTHER ==
[2019-11-20 15:46] VITALS: BP 108/83; PULSE 83; TEMP 97.3; BMI 30.8
--- NOTE | 2019-11-20 16:20 | PDOC ---
History of Present Illness - General History Source: Patient Exam Limitations: No Limitations - History of Present Illness Initial Comments: 11/20/19 16:14 Patient is a 34-year-old female who is (with one elective more than 10 years ago) who presents to the ED with complaint of vaginal spotting for the last 3 days. The patient states she was seen on 11/16 by her SECURITY OPERATIONS MANAGER and had an ultrasound which was negative. She states yesterday her bleeding increased slightly and she saw her SECURITY OPERATIONS MANAGER again and had blood work and a repeat ultrasound. The repeat ultrasound showed a questionable left adnexal mass which was concerning for an ectopic . The patient states her beta-hCG went from 6300 on 11/16 to 6100 on 11/18. The patient states that her spotting has not changed. She denies any lower abdominal pain. She was told by her SECURITY OPERATIONS MANAGER that she may have an ectopic and may require methotrexate versus a surgical procedure. The patient was sent to the emergency department for repeat lab work. Dr. Ayala apartment leasing manager [phone] would like to be called with results. <Sunita Gonzales - Last Filed: 11/20/19 18:48> <Allegra Li - Last Filed: 11/23/19 08:15> - General Chief Complaint: Vaginal Bleeding Stated Complaint: SENT BY /GINA PREG Time Seen by Provider: 11/20/19 15:48 Past History - Past Medical History COPD: No - Surgical History Cholecystectomy: Yes - Immunization History Immunization Up to Date: Yes - Psycho Social/Smoking Cessation Hx Smoking Status: No Smoking History: Never smoked Have you smoked in the past 12 months: No Number of Cigarettes Smoked Daily: 0 Hx Alcohol Use: No Drug/Substance Use Hx: No Substance Use Type: None <Sunita Gonzales - Last Filed: 11/20/19 18:48> <Allegra Li - Last Filed: 11/23/19 08:15> - Past Medical History Allergies/Adverse Reactions: Allergies Allergy/AdvReac Type Severity Reaction Status Date / Time No Known Allergies Allergy Verified 10/19/18 04:58 Home Medications: Ambulatory Orders Ondansetron [Zofran *Odt*] 8 mg SL BID PRN #14 od.tablet 08/25/17 Ciprofloxacin [Cipro (Restricted To Id)] 500 mg PO Q12H #14 tablet 06/30/19 Review of Systems - Review of Systems Comments:: 11/20/19 16:18 - Review of Systems Able to Perform ROS?: Yes Constitutional: No: Fever, Chills, Loss of Appetite, Night Sweats, Weakness HEENTM: No: Eye Pain, Vision changes, Ear Pain, Throat Pain, Throat Swelling, Mouth Pain, Difficulty Swallowing Respiratory: No: Cough, Shortness of Breath, Wheezing, Sputum Production Cardiac (ROS): No: Chest Pain, Chest Tightness, Palpitations, Irregular Heart Beat, Edema ABD/GI: No: Nausea, Vomiting, Abdominal Pain, Diarrhea : No Dysuria, No Hematuria, No Frequency, No Urgency LOAD TESTER: Positive with vaginal spotting and left possible ectopic Musculoskeletal: No: Muscle Pain, Back Pain, Joint Pain, Muscle Weakness, Neck Pain Integumentary: No: Lesions, Rash Neurological: No: Headache, Numbness, Tingling, Weakness, Speech Difficulties <Sunita Gonzales - Last Filed: 11/20/19 18:48> *Physical Exam - Vital Signs Last Vital Signs Temp Pulse Resp BP Pulse Ox 97.3 F L 83 17 108/83 100 11/20/19 15:41 11/20/19 15:41 11/20/19 15:41 11/20/19 15:41 11/20/19 15:41 - Physical Exam 11/20/19 16:19 - Physical Exam General Appearance: Nourished, Appropriately Dressed, No Distress Neck: Supple, No Lymphadenopathy (R), No Lymphadenopathy (L), No Rigidity, No Decreased range of motion Respiratory/Chest: Lungs Clear, Normal Breath Sounds. No Respiratory Distress, No Accessory Muscle Use Cardiovascular: Regular Rhythm, Regular Rate, S1, S2 Gastrointestinal/Abdominal: Normal Bowel Sounds, Soft. Non-tender, No Guarding, No Rebound, No Rigidity LOAD TESTER: mild dark blood in the vaginal vault. Unable to palpate the cervical os, no adnexa tenderness or masses palpated, no suprapubic masses palpated and no tenderness. Musculoskeletal: Normal Inspection. No Decreased Range of Motion Extremity: Normal Capillary Refill, Normal Inspection Integumentary: Normal Color, Dry. No Rash Neurologic: machine adjuster leader II-XII NML intact, Fully Oriented, Alert, Normal Mood/Affect, Normal Response <Sunita Gonzales - Last Filed: 11/20/19 18:48> - Vital Signs Last Vital Signs Temp Pulse Resp BP Pulse Ox 97.3 F L 83 17 108/83 100 11/20/19 15:41 11/20/19 15:41 11/20/19 15:41 11/20/19 15:41 11/20/19 15:41 <Allegra Li - Last Filed: 11/23/19 08:15> ED Treatment Course - LABORATORY CBC & Chemistry Diagram: 11/20/19 14:00 11/20/19 14:00 <Sunita Gonzales D - Last Filed: 11/20/19 18:48> - LABORATORY CBC & Chemistry Diagram: 11/20/19 14:00 11/20/19 14:00 - ADDITIONAL ORDERS Additional order review: 11/20/19 14:00 RBC 4.81 MCV 79.6 L MCHC 32.2 RDW 15.2 MPV 8.0 Neutrophils % 50.2 D Lymphocytes % 38.4 D Monocytes % 8.4 Eosinophils % 2.0 D Basophils % 1.0 - Medications Given in the ED: ED Medications Discontinued Medications Generic Name Dose Route Start Last Admin Trade Name Sommer PRN Reason Stop Dose Admin Methotrexate Sodium 105 mg 11/20/19 17:38 11/20/19 18:13 Mexate Injection - 50 mg/m2 (105 mg) 11/20/19 17:39 105 mg IM Administration ONCE ONE <Allegra Li - Last Filed: 11/23/19 08:15> Medical Decision Making - Medical Decision Making 11/20/19 16:23 Assessment: Patient is a 34-year-old female with vaginal spotting for 3 days with possible ectopic . Plan: -As per her SECURITY OPERATIONS MANAGER, we will repeat the patient's lab work including an hCG quantitative. -We will discuss the case with Dr. Ayala after the values have resulted. -There is possible treatment with surgery versus methotrexate. -Will reassess 11/20/19 17:41 Pt made aware that her Beta HCG is 5300. I have spoke to Dr. Ayala and he states the beta HCG should have gone down by half for the last 3 days. He would like to proceed with methotrexate as there is continued concern for an ectopic . The patient is to follow up in his office on Saturday11/24/19 at 11:15a. The patient has been made aware of this plan and she agrees with this plan. She is aware of her appointment on Saturday with Dr. Ayala. Methotrexate ordered. 11/20/19 18:49 Patient patient has been given methotrexate and has not had any adverse reactions. She is feeling well. She has been made aware that she must follow- up with Dr. Ayala at his office on 11/24/2019 at 11:15 AM. She has been given strict return precautions such as heavy vaginal bleeding, dizziness, lightheadedness, severe abdominal pain or any other worsening symptoms that she must return to the emergency department. She understands and agrees with this treatment plan and the patient is stable for discharge. <Sunita Gonzales - Last Filed: 11/20/19 18:48> - Medical Decision Making The patient was seen and evaluated in conjunction with midlevel provider under my direct supervision, ancillary studies were reviewed. I agree with the plan as outlined with LIAM Gonzales. HPI, workup/dispo as outlined. VS reviewed, wnl. beta hcg is 5300. ectopic noted from yesterday with inappropriately decreasing beta hcg per outpatient results. (previously ~6300) left adnexal complex mass from yesterday's sono done as outpatient basic labs and lytes normal mtx. anticipate discharge, Dr Ayala followup, return precautions 11/23/19 08:14 <Allegra Li - Last Filed: 11/23/19 08:15> Discharge - Discharge Information Problems reviewed: Yes <Sunita Gonzales - Last Filed: 11/20/19 18:48> <Allegra Li - Last Filed: 11/23/19 08:15> - Discharge Information Clinical Impression/Diagnosis: Ectopic Qualifiers: Location of ectopic : other location Intrauterine status: without intrauterine Qualified Code(s): O00.80 - Other ectopic without intrauterine Condition: Stable Disposition: HOME - Follow up/Referral Referrals: Angelica Stone MD [Primary Care Provider] - Porfirio Ayala MD [Staff Physician] - (You have an appointment on 11/24/19 at 11:15am for repeat evaluation) - Patient Discharge Instructions Patient Printed Discharge Instructions: DI for Ectopic Additional Instructions: Get plenty of rest and drink plenty of fluids. Avoid any strenuous activity. The medication can cause you to have vaginal bleeding and abdominal cramping. Return to the emergency department for severe/heavy vaginal bleeding, severe abdominal pain, dizziness or any other worsening symptoms. You have an appointment with Dr. Ayala on 11/16/2019 at 11:15 AM. - Post Discharge Activity
[2019-11-20 16:23] LABS: HEMATOCRIT 38.3 % (32.4-45.2); HEMOGLOBIN 12.3 GM/dL (10.7-15.3); LYMPH % 38.4 % (8-40); MCH 25.6 pg (25.7-33.7); MCHC 32.2 g/dl (32.0-36.0); MEAN CELL VOLUME 79.6 fl (80-96); MONO % 8.4 % (3.8-10.2); NEUT % 50.2 % (42.8-82.8); PLATELET COUNT 297 K/MM3 (134-434); RBC 4.81 M/mm3 (3.60-5.2); RDW 15.2 % (11.6-15.6); WHITE BLOOD COUNT 7.8 K/mm3 (4.0-10.0)
[2019-11-20 16:33] LABS: INR 1.08 (0.83-1.09); PROTHROMBIN TIME (PATIENT) 12.7 SEC (9.7-13.0)
[2019-11-20 17:16] LABS: ALBUMIN 3.6 g/dl (3.4-5.0); BILIRUBIN,TOTAL 0.2 mg/dL (0.2-1); BLOOD UREA NITROGEN 11.6 mg/dL (7-18); CALCIUM 8.3 mg/dL (8.5-10.1); CREATININE 0.8 mg/dL (0.55-1.3); POTASSIUM 4.3 mmol/L (3.5-5.1); TOT PROT 7.1 g/dl (6.4-8.2)
[2019-11-20] MEDS ORDERED: METHOTREXATE SODIUM/PF 25 MG/ML VIAL IM ONE (17:38)
== END 2019-11-20 18:52 | disposition home or self-care (01) ==
LOC: JER 15:30 → JERFT 15:30
PROC: 3E023GC Introduction of Other Therapeutic Substance into Muscle, Percutaneous Approach (ICD-10-PCS; principal; 2019-11-20)
DX: O00.80 Other ectopic pregnancy without intrauterine pregnancy (principal); Z3A.00 Weeks of gestation of pregnancy not specified
CPT/HCPCS: 36415; 80053; 84702; 85025; 85610; 86850; 86900; 86901; 96372; 99284-25; J9260

== ENCOUNTER 2019-11-26 15:41 | Inpatient (IN) | payer OTHER ==
--- NOTE | 2019-11-26 16:09 | PDOC ---
History of Present Illness - General Stated Complaint: ABD PAIN - History of Present Illness Initial Comments: 11/26/19 17:01 34 y/o F received methotrexate 6 days ago for ectopic , presents to the ED with abdominal pain x 1 day.Pain is across her lower abdomen and is sharp in nature and a 10/10 in severity. Pain is non-radiating and is exacerbated by movement. Her bleeding has increased from vaginal spotting though she is unable to quantify. She is not soaking any pads.She has had no associated nausea,vomiting or diarrhea. She denies fevers, chills, dysuria, shortness of breath, chest pain ,headache. FIELD EXAMINER: Dr. Ayala 11/26/19 17:10 ROS: GENERAL/CONSTITUTIONAL: No fever or chills. No weakness. HEAD, EYES, EARS, NOSE AND THROAT: No change in vision. No ear pain or discharge. No sore throat. CARDIOVASCULAR: No chest pain or shortness of breath RESPIRATORY: No cough, wheezing, or hemoptysis. GASTROINTESTINAL: No nausea, vomiting, diarrhea or constipation. GENITOURINARY: No dysuria, frequency, or change in urination. MUSCULOSKELETAL: No joint or muscle swelling or pain. No neck or back pain. SKIN: No rash NEUROLOGIC: No headache, vertigo, loss of consciousness, or change in strength/sensation. ENDOCRINE: No increased thirst. No abnormal weight change HEMATOLOGIC/LYMPHATIC: No anemia, easy bleeding, or history of blood clots. ALLERGIC/IMMUNOLOGIC: No hives or skin allergy. PE: GENERAL: Awake, alert, and fully oriented, uncomfortable HEAD: No signs of trauma, normocephalic, atraumatic EYES: PERRLA, EOMI, sclera anicteric, conjunctiva clear ENT: Auricles normal inspection, hearing grossly normal, nares patent, oropharynx clear without exudates. Moist mucosa NECK: Normal ROM, supple, no lymphadenopathy, JVD, or masses LUNGS: No distress, speaks full sentences, clear to auscultation bilaterally HEART: Regular rate and rhythm, normal S1 and S2, no murmurs, rubs or gallops, peripheral pulses normal and equal bilaterally. ABDOMEN: Soft. ttp across lower abdomen with guarding. EXTREMITIES : Normal inspection, Normal range of motion, no edema. No clubbing or cyanosis NEUROLOGICAL: Cranial nerves II through XII grossly intact. Normal speech, , no focal sensorimotor deficits SKIN: Warm, Dry, normal turgor, no rashes or lesions noted Past History - Past Medical History Allergies/Adverse Reactions: Allergies Allergy/AdvReac Type Severity Reaction Status Date / Time No Known Allergies Allergy Verified 10/19/18 04:58 Home Medications: Ambulatory Orders Ondansetron [Zofran *Odt*] 8 mg SL BID PRN #14 od.tablet 08/25/17 Ciprofloxacin [Cipro (Restricted To Id)] 500 mg PO Q12H #14 tablet 06/30/19 Ibuprofen [Motrin -] 600 mg PO TID #90 tablet 11/27/19 COPD: No - Surgical History Cholecystectomy: Yes - Immunization History Immunization Up to Date: Yes - Psycho Social/Smoking Cessation Hx Smoking Status: No Smoking History: Never smoked Have you smoked in the past 12 months: No Number of Cigarettes Smoked Daily: 0 Information on smoking cessation initiated: No Hx Alcohol Use: No Drug/Substance Use Hx: No Substance Use Type: None *Physical Exam - Vital Signs Last Vital Signs Temp Pulse Resp BP Pulse Ox 98.0 F 87 22 H 110/95 100 11/26/19 15:41 11/26/19 15:41 11/26/19 15:41 11/26/19 15:41 11/26/19 15:41 ED Treatment Course - LABORATORY CBC & Chemistry Diagram: 11/29/19 08:12 11/28/19 07:25 Medical Decision Making - Medical Decision Making 11/26/19 17:15 34 y/o F received methotrexate 6 days ago for ectopic , presents to the ED with abdominal pain x 1 day.Pain is across her lower abdomen and is sharp in nature and a 10/10 in severity. cbc, cmp, pt/inr/ptt, hcg-quant ua, urine culture, type and screen 11/26/19 18:05 pt still in lot of pain will get toradol 30mg IV 11/26/19 20:13 pt received 2mg of morphine for pain syncopized at ultrasound while in the bathroom. felt lightheaded, weak and in in pain pt alert and oriented assisted back to stretcher and to ER , on cardiac exercise specialist, hypotensive, resuscitated 2L of NS FAST exam fluid in LUQ, scant fluid in RUQ. on transvaginal exam fluid in both the right and left adnexa. 11/26/19 20:16 repeat cbc shows Hgb drop from 12.4-11 11/26/19 20:[address] Contreras will be heading to OR 11/26/19 20:35 radiology report, hemoperitoneum, Discharge - Discharge Information Problems reviewed: Yes Clinical Impression/Diagnosis: Ruptured ectopic Condition: Good - Follow up/Referral - Patient Discharge Instructions - Post Discharge Activity
[2019-11-26] MEDS ORDERED: ACETAMINOPHEN 1000 MG/100 ML VIAL (NON FORMULARY) IVPB ONE (16:27)
[2019-11-26] MEDS ORDERED: ACETAMINOPHEN INJECTION 100 ML IVPB ONE (16:36)
[2019-11-26 17:11] LABS: INR 1.01 (0.83-1.09); PROTHROMBIN TIME (PATIENT) 11.9 SEC (9.7-13.0)
[2019-11-26 17:15] LABS: ACTIVATED PTT 32.2 SECONDS (25.2-36.5)
[2019-11-26 17:16] LABS: BASO % 0.6 % (0-2.0); EOS % 1.9 % (0-4.5); HEMATOCRIT 38.5 % (32.4-45.2); HEMOGLOBIN 12.4 GM/dL (10.7-15.3); LYMPH % 34.1 % (8-40); MCH 25.7 pg (25.7-33.7); MCHC 32.1 g/dl (32.0-36.0); MEAN PLT VOLUME 8.3 fl (7.5-11.1); MONO % 6.9 % (3.8-10.2); NEUT % 56.5 % (42.8-82.8); PLATELET COUNT 300 K/MM3 (134-434); RBC 4.82 M/mm3 (3.60-5.2); WHITE BLOOD COUNT 7.4 K/mm3 (4.0-10.0)
[2019-11-26] MEDS ORDERED: KETOROLAC TROMETHAMINE 30 MG/1 ML VIAL IVPUSH ONE (17:24)
[2019-11-26] MEDS ORDERED: KETOROLAC TROMETHAMINE 30 MG/1 ML VIAL ONE (18:07)
--- NOTE | 2019-11-26 18:07 | PDOC ---
Documentation entered by Carlie Dale SCRIBE, acting as scribe for Alexia Howell DO. Alexia Howell DO: This documentation has been prepared by the Alina goodwin Nirvannie, SCRIBE, under my direction and personally reviewed by me in its entirety. I confirm that the documentation accurately reflects all work, treatment, procedures, and medical decision making performed by me. Attending Attestation - Resident Resident Name: HerbHoraceleslienelsy - ED Attending Attestation I have performed the following: I have examined & evaluated the patient, The case was reviewed & discussed with the resident, I agree w/resident's findings & plan, Exceptions are as noted - HPI HPI: 11/26/19 17:42 The patient is a 34 year old female with a significant past medical history of recent ectopic who presents to the ED with 1 day of 10/10, sharp, suprapubic abdominal pain worsened with movement. As per patient, she recently received Methotrexate 6 days ago for an ectopic . She notes increased vaginal bleeding which initially onset as an unknown amount of spotting. She denies soaking through pads. She denies any fever, chills, shortness of breath, or chest pain. Allergies: NKDA Primary Care Physician: Dr. Stone CONSTRUCTION PRODUCER: Dr. Ayala - Physicial Exam PE: 11/26/19 18:02 Constitutional: Awake, alert, oriented. No acute distress. Head: Normocephalic. Atraumatic Eyes: PERRL. EOMI. Conjunctivae are not pale. ENT: Mucous membranes are moist and intact. Posterior pharynx without exudates or erythema. Uvula midline. Neck: Supple. Full ROM. No lymphadenopathy. Cardiovascular: Regular rate. Regular rhythm. S1, S2 regular. Distal pulses are 2+ and symmetric. Pulmonary/Chest: No evidence of respiratory distress. Clear to auscultation bilaterally No wheezing, rales or rhonchi. Abdominal: +Suprapubic, bilateral lower pelvic tenderness. Soft and non- distended. No rebound, guarding or rigidity. No organomegaly. No palpable m asses. Good bowel sounds. Back: No CVA tenderness. Musculoskeletal: No edema. No cyanosis. No clubbing. Full range of motion in all extremities. No calf tenderness. Radial/pedal pulses are intact and 2+ bilaterally Skin: Skin is warm and dry. No petechiae. No purpura. Neurological: Alert and oriented to person, place, and time. Cranial nerves II-XII are grossly intact. Normal speech. Strength is grossly symmetric. No sensory deficits. Psychiatric: Good eye contact. Normal interaction, affect and behavior. - Medical Decision Making 11/26/19 17:35 a/p: 34yo female with with ectopic preg treated with methotrexate a week ago -saw estevan on saturday, no "real change in beta" levels after methotrexate. increasing pain and not heavy bleeding -concern for increasing size of ectopic and medication failure -will send labs, TVUS -will send type and screen -will discuss with dr. ayala -will medicate for pain 11/26/19 18:07 cbc reviewed and stable pending beta hcg and type and screen 11/26/19 18:40 beta 4190 ultrasound pending 11/26/19 18:40 pt is O+ 11/26/19 19:44 pt with syncope in the bathroom at ultrasound, had only undergone transabd ultrasound, went to urinate and syncopized pt diaphoretic and hypotensive bedside fast now + FF RUQ, LUQ, suprapubic call placed to Dr. Ayala, concern for ruptured ectopic call placed to ultrasound to perform bedside in room 10 glu 128 ivf hydraiton started 11/26/19 20:03 prelim read on ultrasound shows ff in the pelvis and L adnexal mass concerning for ruptured ectopic another call placed to Dr. ayala 11/26/19 20:14 repeat hgb 11 from 12.4 11/26/19 20:[address] Contreras who will take pt to the OR Discharge - Discharge Information Problems reviewed: Yes Clinical Impression/Diagnosis: Ruptured ectopic Condition: Critical - Admission Yes - Follow up/Referral Referrals: Angelica Stone MD [Primary Care Provider] - - Patient Discharge Instructions - Post Discharge Activity
[2019-11-26 18:38] LABS: ALBUMIN 3.7 g/dl (3.4-5.0); BILIRUBIN,TOTAL 0.3 mg/dL (0.2-1); CALCIUM 8.6 mg/dL (8.5-10.1); CREATININE 0.6 mg/dL (0.55-1.3); POTASSIUM 4.2 mmol/L (3.5-5.1); TOT PROT 7.4 g/dl (6.4-8.2)
[2019-11-26] MEDS ORDERED: morphine CARPU-JECT 2 MG/1 ML DISP.SYRIN IVPUSH ONE (18:57)
[2019-11-26] MEDS ORDERED: MORPHINE SULFATE 2 MG/ML VIAL ONE (18:58)
[2019-11-26] MEDS ORDERED: SODIUM CHLORIDE 0.9% 1000 ML INFUS.BAG IV ONE (19:47)
[2019-11-26] MEDS ORDERED: LACTATED RINGERS SOLUTION 1000 ML INFUS.BAG IV ONE (19:47)
[2019-11-26 20:06] LABS: BASO % 1.1 % (0-2.0); EOS % 0.4 % (0-4.5); HEMATOCRIT 34.7 % (32.4-45.2); LYMPH % 23.6 % (8-40); MCH 25.6 pg (25.7-33.7); MCHC 31.7 g/dl (32.0-36.0); MEAN CELL VOLUME 80.7 fl (80-96); MONO % 4.2 % (3.8-10.2); NEUT % 70.7 % (42.8-82.8); PLATELET COUNT 307 K/MM3 (134-434); WHITE BLOOD COUNT 12.5 K/mm3 (4.0-10.0)
--- NOTE | 2019-11-26 21:02 | HP ---
Past Medical History - Primary Care Physician PCP:: Sarkis Contreras - Admission Chief Complaint: abdominal pain,ruptured LT. tubal ectopic History of Present Illness: 34 yo f known case of ectopic recived methtrexate 6 days ago , patient came to ER with severe low abdominal pain pain scale 10/10 , has ruq pain as well, tvs revealed hemoperitonium , no significant decrese in HCG ,, i was asked to see patient ,i saw patient in ER at 835 pm , History Source: Patient Limitations to Obtaining History: No Limitations - Past Medical History ...: 2 ...Para: 0 ...Term: 0 ...: 0 ...Spon : 1 - Past Surgical History Past Surgical History: Yes: Cholecystectomy (liposuction) Hx Myomectomy: No Hx Transabdominal Cerclage: No - Smoking History Smoking history: Never smoked Have you smoked in the past 12 months: No Aproximately how many cigarettes per day: 0 - Alcohol/Substance Use Hx Alcohol Use: No - Social History History of Recent Travel: No Home Medications - Allergies Allergies/Adverse Reactions: Allergies Allergy/AdvReac Type Severity Reaction Status Date / Time No Known Allergies Allergy Verified 10/19/18 04:58 - Home Medications Home Medications: Ambulatory Orders Ondansetron [Zofran *Odt*] 8 mg SL BID PRN #14 od.tablet 08/25/17 Ciprofloxacin [Cipro (Restricted To Id)] 500 mg PO Q12H #14 tablet 06/30/19 Review of Systems - Review of Systems Constitutional: reports: Weakness Eyes: reports: No Symptoms HENT: reports: No Symptoms Neck: reports: No Symptoms Cardiovascular: reports: No Symptoms Respiratory: reports: No Symptoms Gastrointestinal: reports: Abdominal Pain Genitourinary: reports: Frequency Breasts: reports: No Symptoms Reported Musculoskeletal: reports: No Symptoms Integumentary: reports: No Symptoms Neurological: reports: No Symptoms Endocrine: reports: No Symptoms Hematology/Lymphatic: reports: No Symptoms Pain Intensity: 10 Physical Exam-DIRECTOR OF STUDENT AFFAIRS Vital Signs: Vital Signs Temperature 98.0 F 11/26/19 15:41 Pulse Rate 94 H 11/26/19 20:37 Respiratory Rate 20 11/26/19 20:37 Blood Pressure 77/49 L 11/26/19 20:37 O2 Sat by Pulse Oximetry (%) 100 11/26/19 20:37 Constitutional: Yes: Obese Eyes: Yes: WNL HENT: Yes: WNL Neck: Yes: WNL Cardiovascular: Yes: WNL Respiratory: Yes: WNL Gastrointestinal: Yes: Abdomen, Obese, Tenderness, Tenderness, Rebound Renal/: Yes: WNL External Genitalia: Yes: Normal Internal Exam Deferred: Yes Psychiatric: Yes: WNL Labs: CBC, BMP 11/26/19 19:55 11/26/19 16:28 Problem List - Problem (1) Ruptured left tubal ectopic causing hemoperitoneum Code(s): O00.102 - LEFT TUBAL WITHOUT INTRAUTERINE ; K66.1 - HEMOPERITONEUM (2) Ruptured ectopic Code(s): O00.90 - UNSPECIFIED ECTOPIC WITHOUT INTRAUTERINE Assessment/Plan admit for OR advised laparoscpy, possible laparotomy, LT salpingectomy risks of procedure discussed with patient, risks of infection, bleeding, injury to bowel, bladder , vesseles, and surroundings tissue , post op complication discussed , ulternatives and no treatment discussed, consent signed. OR was notifed at 840 pm , another ectopic procedure in process , importance of emergent case discussed with nurse property management supervisor and OR team
[2019-11-26] MEDS ORDERED: SUCCINYLCHOLINE CHLORIDE 200 MG/10 ML SYRINGE ONE (22:24)
[2019-11-26] MEDS ORDERED: ROCURONIUM BROMIDE 50 MG/5 ML SYRINGE ONE (22:25)
[2019-11-26] MEDS ORDERED: ceFAZolin SODIUM 1 GM VIAL IVPB ONE (22:45)
[2019-11-26] MEDS ORDERED: BUPIVACAINE HCL/PF 0.5% (5 MG/ML) 30 ML VIAL IJ ONE (23:52)
[2019-11-26] MEDS ORDERED: PROPOFOL 20 ML ONE (23:56)
[2019-11-26] MEDS ORDERED: NEOSTIGMINE METHYLSULFATE 0.5 MG/ML - 10 ML MDV ONE (23:59)
--- NOTE | 2019-11-27 00:12 | PN ---
Progress Note (short form) - Note Progress Note: I assisted Dr. Contreras at resection of cornual for the entirety of the case.
[2019-11-27] MEDS ORDERED: ONDANSETRON 4 MG/2 ML VIAL IVPUSH PRN ×2 (00:25→00:29)
[2019-11-27] MEDS ORDERED: oxyCODONE HCL 5 MG TABLET PO PRN (00:25)
[2019-11-27] MEDS ORDERED: IBUPROFEN 800 MG/8 ML IJ IVPB PRN (00:25)
--- NOTE | 2019-11-27 00:39 | OP ---
Operative Note - Note: Operative Date: 11/26/19 Pre-Operative Diagnosis: ruputured LT tubal ectopic Operation: laparoscopy, resection of LT cornual ectopic Findings: leaking LT cornual ectopic , , hemoperitonium Post-Operative Diagnosis: Other (leaking LT cornual ectopic) Surgeon: Sarkis Contreras Mason Tender Restoration Labor: Nish More Anesthesia: General Specimens Removed: LT cornual ectopic Estimated Blood Loss (mls): 50 Drains & Tubes with Location: [place] Blood Volume Replaced (mls): 0 Operative Report Dictated: Yes
[2019-11-27] MEDS: ELECTROLYTE-148 SOLN 1,000 ML IV SCH ×2 (02:25→20:47)
[2019-11-27] MEDS: CEFAZOLIN 1 GM/D5W 1 GM/50 ML BAG IVPB SCH ×3 (04:15→17:48)
[2019-11-27] MEDS: LACTATED RINGERS SOLUTION 1,000 ML IV SCH ×3 (05:37→17:48)
[2019-11-27 06:23] VITALS: BMI 33.8
--- NOTE | 2019-11-27 08:44 | PN ---
Progress Note (short form) - Note Progress Note: pod1 , has milld abdominal and incisional pain Last Vital Signs Temp Pulse Resp BP Pulse Ox 97.8 F 96 H 20 113/69 100 11/27/19 05:04 11/27/19 05:04 11/27/19 05:04 11/27/19 05:04 11/27/19 04:23 abdomen soft, no distension, no cva no rebound or guarding, incisions dry, clean no calf tenderness impression doing well, plan ambulate cbc advance diet revaluate Problem List - Problems (1) Ruptured left tubal ectopic causing hemoperitoneum Code(s): O00.102 - LEFT TUBAL WITHOUT INTRAUTERINE ; K66.1 - HEMOPERITONEUM (2) Ruptured ectopic Code(s): O00.90 - UNSPECIFIED ECTOPIC WITHOUT INTRAUTERINE
[2019-11-27] MEDS: oxyCODONE HCL 5 MG TABLET PO PRN ×4 (10:00→22:46)
--- NOTE | 2019-11-27 10:31 | EKG ---
Test Reason : Blood Pressure : / mmHG Vent. Rate : 054 BPM Atrial Rate : 054 BPM P-R Int : 132 ms QRS Dur : 080 ms QT Int : 450 ms P-R-T Axes : 041 064 053 degrees QTc Int : 426 ms SINUS BRADYCARDIA WHEN COMPARED WITH ECG OF 29-MAY-2017 02:05, VENT. RATE HAS DECREASED BY 29 BPM Confirmed by TYRONE HERNANDEZ MD ([id number]) on 11/27/2019 10:31:43 AM Referred By: Confirmed By:TYRONE HERNANDEZ MD
[2019-11-27 18:13] LABS: BASO % 0.1 % (0-2.0); EOS % 0.2 % (0-4.5); HEMATOCRIT 23.8 % (32.4-45.2); HEMOGLOBIN 7.7 GM/dL (10.7-15.3); LYMPH % 20.2 % (8-40); MCH 25.8 pg (25.7-33.7); MCHC 32.2 g/dl (32.0-36.0); MEAN CELL VOLUME 80.1 fl (80-96); MEAN PLT VOLUME 8.2 fl (7.5-11.1); MONO % 6.9 % (3.8-10.2); NEUT % 72.6 % (42.8-82.8); PLATELET COUNT 241 K/MM3 (134-434); RBC 2.97 M/mm3 (3.60-5.2); RDW 15.1 % (11.6-15.6); WHITE BLOOD COUNT 10.5 K/mm3 (4.0-10.0)
[2019-11-28] MEDS: CEFAZOLIN 1 GM/D5W 1 GM/50 ML BAG IVPB SCH ×3 (02:00→17:06)
[2019-11-28] MEDS: oxyCODONE HCL 5 MG TABLET PO PRN ×2 (02:33→07:54)
[2019-11-28 08:08] LABS: BASO % 0.2 % (0-2.0); BLOOD UREA NITROGEN 7.7 mg/dL (7-18); CALCIUM 7.2 mg/dL (8.5-10.1); CREATININE 0.5 mg/dL (0.55-1.3); EOS % 1.2 % (0-4.5); HEMATOCRIT 21.2 % (32.4-45.2); LYMPH % 30.2 % (8-40); MCH 26.4 pg (25.7-33.7); MCHC 33.1 g/dl (32.0-36.0); MEAN CELL VOLUME 79.6 fl (80-96); MEAN PLT VOLUME 7.8 fl (7.5-11.1); MONO % 7.9 % (3.8-10.2); NEUT % 60.5 % (42.8-82.8); PLATELET COUNT 213 K/MM3 (134-434); POTASSIUM 3.5 mmol/L (3.5-5.1); RBC 2.66 M/mm3 (3.60-5.2); RDW 15.3 % (11.6-15.6); WHITE BLOOD COUNT 8.3 K/mm3 (4.0-10.0)
--- NOTE | 2019-11-28 10:11 | PN ---
Progress Note, Physician Chief Complaint: 34yo s/p ruptured Cornual ectopic reports feeling very tired, difficulty with activities of daily living but no palpitations, no SOB, pain is controlled, but keeps requesting Oxicodone - Current Medication List Current Medications: Active Medications Cefazolin Sodium (Ancef 1 Gm Premixed Ivpb -) 1 gm in 50 mls @ 100 mls/hr IVPB Q8H-IV MAGDA Last Admin: 11/28/19 02:00 Dose: 100 mls/hr Documented by: Ibuprofen (Caldolor Injection -) 800 mg IVPB Q6H PRN PRN Reason: Fever - If PO not effective. Last Admin: 11/27/19 05:53 Dose: 800 mg Documented by: Ibuprofen (Motrin -) 600 mg PO Q6H PRN PRN Reason: FEVER Ondansetron HCl (Zofran Injection) 4 mg IVPUSH Q6H PRN PRN Reason: NAUSEA Oxycodone HCl (Roxicodone -) 5 mg PO Q4H PRN PRN Reason: PAIN LEVEL 1-5 Last Admin: 11/27/19 03:55 Dose: 5 mg Documented by: Oxycodone HCl (Roxicodone -) 10 mg PO Q4H PRN PRN Reason: PAIN LEVEL 6-10 Last Admin: 11/28/19 07:54 Dose: 10 mg Documented by: - Objective Vital Signs: Vital Signs Temperature 97.9 F 11/27/19 23:08 Pulse Rate 94 H 11/27/19 23:08 Respiratory Rate 20 11/27/19 23:08 Blood Pressure 118/67 11/27/19 23:08 O2 Sat by Pulse Oximetry (%) 98 11/27/19 21:00 Constitutional: Yes: Well Nourished, No Distress, Calm Eyes: Yes: WNL, Conjunctiva Clear HENT: Yes: WNL Neck: Yes: WNL Cardiovascular: Yes: WNL Respiratory: Yes: WNL, Regular, CTA Bilaterally Gastrointestinal: Yes: WNL, Normal Bowel Sounds, Soft Genitourinary: Yes: WNL Musculoskeletal: Yes: WNL Extremities: Yes: WNL Edema: No Peripheral Pulses WNL: Yes Integumentary: Yes: WNL Wound/Incision: Yes: Clean/Dry, Well Approximated Neurological: Yes: WNL, Alert, Oriented ...Motor Strength: WNL Psychiatric: Yes: WNL, Alert, Oriented Labs: CBC, BMP 11/28/19 07:25 11/28/19 07:25 INR, PTT INR 1.01 (0.83-1.09) 11/26/19 16:28 Assessment/Plan 34yo s/p Ruptured Ectopic resection significant, mildly symptomatic blood loss Orthostatics requested Patient agreed to 2UPRBC transfusion Premedicate prior to transfusion with Tylenol/Benadryl Recommended to utilize Motrin/Tylenol for pain Consider d/c 11/29/19 if remains stable
[2019-11-28] MEDS: ACETAMINOPHEN 325 MG TABLET (FP) PO PRN ×3 (13:39→21:08)
[2019-11-28] MEDS: IBUPROFEN 600 MG TABLET (FP) PO PRN ×2 (13:39→23:24)
[2019-11-28 20:42] LABS: EPI CELLS 24 /uL (0-25.1); HYALINE CASTS 0 /uL (0-3.1); PH,URINE 6.5 (5.0-8.0); URINE APPEARANCE CLEAR; URINE BACTERIA 26 /uL (0-1359); URINE BILIRUBIN NEGATIVE (NEGATIVE); URINE COLOR YELLOW; URINE GLUCOSE (UA) NEGATIVE (NEGATIVE); URINE KETONE NEGATIVE (NEGATIVE); URINE LEUK ESTERASE NEGATIVE (NEGATIVE); URINE NITRITE NEGATIVE (NEGATIVE); URINE PROTEIN NEGATIVE (NEGATIVE); URINE RBC 255 /uL (0-23.9); URINE UROBILINOGEN 0.2 mg/dL (0.2-1.0); URINE WBC 7 /uL (0-25.8)
[2019-11-29] MEDS: CEFAZOLIN 1 GM/D5W 1 GM/50 ML BAG IVPB SCH ×2 (02:47→09:43)
[2019-11-29] MEDS: ACETAMINOPHEN 325 MG TABLET (FP) PO PRN ×2 (04:05→09:57)
[2019-11-29] MEDS: IBUPROFEN 600 MG TABLET (FP) PO PRN (06:32)
[2019-11-29] MEDS ORDERED: PT OWN MED DRAWER 7, Y5N ONE (08:48)
[2019-11-29 09:38] LABS: BASO % 0.7 % (0-2.0); EOS % 3.5 % (0-4.5); HEMATOCRIT 25.4 % (32.4-45.2); HEMOGLOBIN 8.4 GM/dL (10.7-15.3); LYMPH % 40.3 % (8-40); MCHC 33.2 g/dl (32.0-36.0); MEAN CELL VOLUME 81.3 fl (80-96); MONO % 9.7 % (3.8-10.2); NEUT % 45.8 % (42.8-82.8); PLATELET COUNT 216 K/MM3 (134-434); RBC 3.13 M/mm3 (3.60-5.2); WHITE BLOOD COUNT 5.8 K/mm3 (4.0-10.0)
[2019-11-29 10:52] VITALS: BP 118/73; PULSE 75; TEMP 97.4
--- NOTE | 2019-11-29 13:29 | DS ---
Physical Exam-SORTER/ASSAY TECH Vital Signs: Vital Signs Temperature 97.4 F L 11/29/19 10:00 Pulse Rate 75 11/29/19 10:00 Respiratory Rate 19 11/29/19 10:00 Blood Pressure 118/73 11/29/19 10:00 O2 Sat by Pulse Oximetry (%) 98 11/29/19 08:08 Constitutional: Yes: Well Nourished, No Distress, Calm Eyes: Yes: WNL, Conjunctiva Clear, EOM Intact HENT: Yes: WNL, Atraumatic, Normocephalic Neck: Yes: WNL, Supple, Trachea Midline Cardiovascular: Yes: WNL, Regular Rate and Rhythm Respiratory: Yes: WNL, Regular, CTA Bilaterally Gastrointestinal: Yes: WNL, Normal Bowel Sounds, Soft, Abdomen, Obese ...Rectal Exam: Yes: Deferred Renal/: Yes: WNL External Genitalia: Yes: Normal Breast(s): Yes: WNL Musculoskeletal: Yes: WNL Extremities: Yes: WNL Edema: No Integumentary: Yes: WNL Wound/Incision: Yes: Clean/Dry, Well Approximated, Sutures Intact, Open to air Neurological: Yes: WNL, Alert, Oriented ...Motor Strength: WNL Psychiatric: Yes: WNL, Alert, Oriented Labs: CBC, BMP 11/29/19 08:12 11/28/19 07:25 Discharge Summary Problems reviewed: Yes Reason For Visit: RUPTUREDECTOPIC Current Active Problems Ruptured ectopic (Acute) Ruptured left tubal ectopic causing hemoperitoneum (Acute) Procedures: Principal: Laparoscopic resection of left cornual ectopic Other Procedures: 2u PRBC Hospital Course: Anemia due to acute blood loss Goals: Normal postop recovery Condition: Good - Instructions Diet, Activity, Other Instructions: regular diet, no intercourse follow up office 2 weeks if fever, pain, heavy vaginal bleeding call MD Referrals: Angelica Stone MD [Primary Care Provider] - Porfirio Ayala MD [Staff Physician] - 1 Week Disposition: HOME - Home Medications Comprehensive Discharge Medication List: Ambulatory Orders Ondansetron [Zofran *Odt*] 8 mg SL BID PRN #14 od.tablet 08/25/17 Ciprofloxacin [Cipro (Restricted To Id)] 500 mg PO Q12H #14 tablet 06/30/19 Ibuprofen [Motrin -] 600 mg PO TID #90 tablet 11/27/19 Prescription Drug Monitoring Program (I-STOP) results: I-STOP not reviewed
--- NOTE | 2019-12-01 13:24 | PATH ---
Surgical Pathology Report Patient Name: KALPANA NARANJO Med. Rec. #: [id number] /Age/Gender: 1985 (Age: 34) / F Account: [id number] Location: [address] [place] [address]/[facility] Taken: 11/26/2019 Received: 11/27/2019 Reported: 12/01/2019 Physicians: Sarkis Contreras M.D. Specimen(s) Received LEFT CORNUAL ECTOPIC Clinical History Abdominal pain, ectopic Final Diagnosis LEFT CORNUAL ECTOPIC , EXCISION: DILATED LUMEN WITH SMOOTH MUSCLE WALL SHOWING INTRALUMINAL CHORIONIC VILLI AND TROPHOBLASTS, COMPATIBLE WITH CORNUAL ECTOPIC . Electronically Signed Ryan Rendon M.D. Gross Description Received in formalin labeled "left cornual ," is a 3.0 x 2.0 x 1.8 cm markedly dilated portion of probable fallopian tube. There is a focal hemorrhagic defect at one end of the specimen. The remaining outer surface is davis purple and smooth. No fimbria are present. Sectioning reveals a markedly dilated lumen containing red-brown blood clot. No definitive villous tissue or somatic tissue is identified. Chainstitch Zipper Setter sections are submitted in 4 cassettes. Remainder of the specimen is submitted in cassettes 5-7. /11/27/2019 saudi/11/27/2019
--- NOTE | 2019-12-01 14:47 | OP ---
DATE OF OPERATION: 11/26/2019 PREOPERATIVE DIAGNOSIS: Rule out left ruptured ectopic . POSTOPERATIVE DIAGNOSIS: Leaking left cornual ectopic . PROCEDURE: Resection of the left cornual ectopic with evacuation of hemoperitoneum. SURGEON: Sarkis Contreras MD WORKING SUPERVISOR: Nish More MD ANESTHESIA: General. ANESTHESIOLOGIST: ESTIMATED BLOOD LOSS INTRAOPERATIVELY: 50 mL. DESCRIPTION OF PROCEDURE: Patient was taken to the operating room and under adequate general anesthesia in dorsal lithotomy position, examination under anesthesia revealed external genitalia to be normal. Vagina was normal. Cervix was closed, with small amount of bleeding from the os. Uterus normal size. Adnexa: No masses were palpable. Then with the weighted speculum in the vagina, anterior lip of cervix was grasped with single-tooth tenaculum, and Hulka was introduced into the uterine cavity for manipulation. Toro inserted. Patient was placed in dorsal lithotomy position for the laparoscopy. Small infraumbilical skin incision was made. Veress needle was introduced into the abdominal cavity without any difficulty, pneumoperitoneum established, and the 5-mm trocar was introduced to the umbilical area under direct vision. Then visualization of the pelvis and abdomen showed large amount of hemoperitoneum. Then a 5-mm trocar was introduced through the right hypogastric and then 10-mm through the left hypogastric under direct laparoscopic vision. Then suction was introduced. There was approximately 700-1000 mL of hemoperitoneum with some blood clots which was evacuated and suctioned, and then there was a large bluish mass at the junction of the uterus and left fallopian tube consistent with cornual ectopic . Then with the bipolar cautery, meticulously was cauterized around the ectopic , and then the cornual resection was done with LigaSure bipolar cautery, and the ectopic was removed from the cornual area. Then there was small amount of oozing from the cornual area which was cauterized with bipolar cautery. No active bleeding was seen at that area. Left cornual area was irrigated several times, and the rest of the blood clots and the blood was removed from the cul-de-sac. Both ovaries appeared to be normal. The right tube also appeared to be normal. No adhesions. No adhesion in the cul-de-sac or anteriorly. Upper abdomen was checked for with some hemoperitoneum, which patient was placed in lithotomy position and then the blood was suctioned. There was also blood in both gutters which was suctioned. Then Surgicel was placed at the left cornual region for complete hemostasis, and FloSeal was applied over the Surgicel. Visualization showed the cornu was dry with no leaking or no bleeding. Also the end of the left tube was no bleeding. Then instruments were withdrawn, then the left trocar incision was closed with interrupted 0 Vicryl, and fascia was brought together. Subcutaneous fat of the left portal area was closed with interrupted suture of 3-0 Vicryl, and skin was closed with Dermabond glue. Also a suture was placed at the umbilical area and fascia was closed, then the skin was brought together with Dermabond glue. The Hulka was removed. Patient tolerated the procedure well and left the OR in good condition. Maria C [id number]
== END 2019-11-29 18:59 | disposition home or self-care (01) | DRG 545 ==
LOC: JER 15:41 → J6S 11-27 02:44 → JER 11-27 04:23 → J6S 11-27 04:23
PROVIDERS: ADMIT Obstetrics & Gynecology; ATTEND Obstetrics & Gynecology
PROC: 0UT64ZZ Resection of Left Fallopian Tube, Percutaneous Endoscopic Approach (ICD-10-PCS; 2019-11-26)
PROC: 0WCG4ZZ Extirpation of Matter from Peritoneal Cavity, Percutaneous Endoscopic Approach (ICD-10-PCS; 2019-11-26)
PROC: 30233N1 Transfusion of Nonautologous Red Blood Cells into Peripheral Vein, Percutaneous Approach (ICD-10-PCS; 2019-11-26)
PROC: 10T24ZZ Resection of Products of Conception, Ectopic, Percutaneous Endoscopic Approach (ICD-10-PCS; principal; 2019-11-26 22:00)
DX: O00.102 Left tubal pregnancy without intrauterine pregnancy (principal); K66.1 Hemoperitoneum; D62 Acute posthemorrhagic anemia
CPT/HCPCS: 36415; 36430; 36511; 76830-TC; 80048; 80053; 81003; 82962; 84702; 85025; 85610; 85730; 86850; 86900; 86901; 86922; 87086; 88305-TC; 93005; 93010; 94760; 99285-25; J0131; P9038; P9058

== ENCOUNTER 2020-04-09 12:03 | Emergency (ER) | payer OTHER ==
[2020-04-09 12:10] VITALS: BP 121/73; PULSE 71; BMI 26.6
[2020-04-09 13:42] LABS: BASO % 0.7 % (0-2.0); EOS % 2.3 % (0-4.5); HEMATOCRIT 39.2 % (32.4-45.2); HEMOGLOBIN 13.1 GM/dL (10.7-15.3); LYMPH % 33.9 % (8-40); MCH 27.7 pg (25.7-33.7); MCHC 33.3 g/dl (32.0-36.0); MEAN CELL VOLUME 83.2 fl (80-96); MEAN PLT VOLUME 8.8 fl (7.5-11.1); MONO % 5.8 % (3.8-10.2); NEUT % 57.3 % (42.8-82.8); PLATELET COUNT 282 K/MM3 (134-434); RBC 4.72 M/mm3 (3.60-5.2); RDW 13.3 % (11.6-15.6); WHITE BLOOD COUNT 6.7 K/mm3 (4.0-10.0)
[2020-04-09 13:46] LABS: EPI CELLS 6 /uL (0-25.1); HYALINE CASTS 0 /uL (0-3.1); URINE APPEARANCE CLEAR; URINE BACTERIA 108 /uL (0-1359); URINE BILIRUBIN NEGATIVE (NEGATIVE); URINE COLOR YELLOW; URINE GLUCOSE (UA) NEGATIVE (NEGATIVE); URINE KETONE NEGATIVE (NEGATIVE); URINE LEUK ESTERASE NEGATIVE (NEGATIVE); URINE NITRITE NEGATIVE (NEGATIVE); URINE PROTEIN NEGATIVE (NEGATIVE); URINE RBC 10 /uL (0-23.9); URINE UROBILINOGEN 0.2 mg/dL (0.2-1.0); URINE WBC 4 /uL (0-25.8)
--- NOTE | 2020-04-09 13:50 | PDOC ---
History of Present Illness - General Chief Complaint: Vaginal Bleeding Stated Complaint: VAGINAL BLEEDING Time Seen by Provider: 04/09/20 12:20 History Source: Patient Exam Limitations: No Limitations - History of Present Illness Travel History: No Initial Comments: 04/09/20 13:35 34-year-old female presents to the emergency room with complaints of light red spotting since this a.m. Patient states did a home test since she is currently trying to get after having an ectopic earlier this year which required surgical intervention without removal of fallopian or ovary. Patient states called Dr. Ayala's office but does not have an appointment until next week and so decided come to the ER for further evaluation. Patient denies urinary complaints fever, chills, weakness, dizziness but does state mild suprapubic cramping. Timing/Duration: reports: constant Quality: reports: mild, cramping (Const) Abdominal Pain Onset Location: reports: suprapubic ( none) Pain Radiation: reports: no radiation Activities at Onset: reports: none Aggravating Factors: improves with: None Alleviating Factors: improves with: None Past History - Medical History Allergies/Adverse Reactions: Allergies Allergy/AdvReac Type Severity Reaction Status Date / Time No Known Allergies Allergy Verified 04/09/20 12:06 Home Medications: Ambulatory Orders NK [No Known Home Medication] 04/09/20 Anemia: No Asthma: No Cancer: No Cardiac Disorders: No CVA: No COPD: No CHF: No Dementia: No Diabetes: No Disorders: No HTN: No Hypercholesterolemia: No Liver Disease: No Seizures: No Thyroid Disease: No - Surgical History Cardiac Surgery: No Cholecystectomy: Yes Lung Surgery: No Neurologic Surgery: No - Reproductive History Is Patient Now?: Yes - Immunization History Immunization Up to Date: Yes - Psycho-Social/Smoking History Patient Lives Alone: No Lives with/in: spouse/SO Smoking Status: No Smoking History: Never smoked Have you smoked in the past 12 months: No Number of Cigarettes Smoked Daily: 0 - Substance Abuse Hx (Audit-C & DAST Scrn) In the last yr the pt used illegal drug/Rx for NonMed reason: No Score: Yes response is considered Positive: 0 Screen Result (Positive result requires Nsg. DAST-10): Negative Abd/GI Specific PMHX - Complaint Specific PMHX Colitis: No Diverticulitis: No Review of Systems - Review of Systems Able to Perform ROS?: Yes Constitutional: No: Symptoms Reported HEENTM: No: Symptoms Reported Respiratory: No: Symptoms reported Cardiac (ROS): No: Symptoms Reported ABD/GI: Yes: Abdominal cramping : Yes: Discharge Musculoskeletal: No: Symptoms Reported Integumentary: No: Symptoms Reported Neurological: No: Symptoms reported Endocrine: No: Symptoms Reported Hematologic/Lymphatic: No: Symptoms Reported *Physical Exam - Vital Signs Last Vital Signs Temp Pulse Resp BP Pulse Ox 71 16 121/73 99 04/09/20 12:07 04/09/20 12:07 04/09/20 12:07 04/09/20 12:07 - Physical Exam General Appearance: Yes: Nourished, Appropriately Dressed. No: Apparent Distress HEENT: negative: Pale Conjunctivae Neck: positive: Supple Respiratory/Chest: positive: Lungs Clear, Normal Breath Sounds. negative: Respiratory Distress, Accessory Muscle Use Cardiovascular: positive: Regular Rhythm, Regular Rate. negative: Tachycardia Female Pelvic Exam: positive: normal external exam (No vaginal bleeding noted on undergarment) Gastrointestinal/Abdominal: positive: Normal Bowel Sounds, Soft. negative: Distended, Tenderness Extremity: positive: Normal Capillary Refill Integumentary: positive: Normal Color, Warm, Moist Neurologic: positive: Motor Strength 5/5 (Ambulatory) ED Treatment Course - LABORATORY CBC & Chemistry Diagram: 04/09/20 13:00 04/09/20 12:37 Medical Decision Making - Medical Decision Making 04/09/20 13:54 Chief complaint: Vaginal spotting with mild abdominal cramping Exam: Vital signs stable. No abdominal tenderness on exam. No vaginal bleeding noted undergarments. Plan: Labs, urine and ultrasound ordered 04/09/20 14:44 Laboratory Tests 04/09/20 04/09/20 04/09/20 12:37 13:00 13:00 WBC 6.7 Hgb 13.1 Hct 39.2 D Absolute Neuts (auto) 3.8 Neutrophils % 57.3 D Sodium 140 Potassium 3.8 Chloride 106 Carbon Dioxide 28 Anion Gap 6 L BUN 13.4 Creatinine 0.7 Est GFR (CKD-EPI)AfAm 132.87 Est GFR (CKD-EPI)NonAf 114.64 Random Glucose 121 H Beta HCG, Quant < 1.0 Urine Nitrite Negative Urine Bilirubin Negative Ur Leukocyte Esterase Negative Urine Bacteria (Auto) 108 Blood Type Antibody Screen 04/09/20 13:00 WBC Hgb Hct Absolute Neuts (auto) Neutrophils % Sodium Potassium Chloride Carbon Dioxide Anion Gap BUN Creatinine Est GFR (CKD-EPI)AfAm Est GFR (CKD-EPI)NonAf Random Glucose Beta HCG, Quant Urine Nitrite Urine Bilirubin Ur Leukocyte Esterase Urine Bacteria (Auto) Blood Type O POSITIVE Antibody Screen Negative 04/09/20 15:11 Ultrasound shows no sonographic evidence of an ectopic possible submucosal myoma as described patient to follow-up with her PACKAGE DELIVERY DRIVER Dr. Ayala Discharge - Discharge Information Problems reviewed: Yes Clinical Impression/Diagnosis: Spotting Condition: Good Disposition: HOME - Follow up/Referral Referrals: Angelica Stone MD [Primary Care Provider] - - Patient Discharge Instructions Patient Printed Discharge Instructions: DI for Abdominal Pain-Adult Additional Instructions: At this time there is no sign of ectopic nor are you . There is a small fibroid noted but otherwise normal ultrasound. Follow-up with Dr. Ayala as scheduled - Post Discharge Activity
[2020-04-09 14:14] LABS: ALBUMIN 3.8 g/dl (3.4-5.0); ALK PHOS 101 U/L (45-117); ANION GAP 6 MMOL/L (8-16); BILIRUBIN,TOTAL 0.2 mg/dL (0.2-1); BLOOD UREA NITROGEN 13.4 mg/dL (7-18); CALCIUM 8.9 mg/dL (8.5-10.1); CHLORIDE 106 mmol/L (98-107); CO2 28 mmol/L (21-32); CREATININE 0.7 mg/dL (0.55-1.3); GLUCOSE,RANDOM 121 mg/dL (74-106); POTASSIUM 3.8 mmol/L (3.5-5.1); SGOT/AST 16 U/L (15-37); SGPT/ALT 26 U/L (13-61); SODIUM 140 mmol/L (136-145); TOT PROT 7.4 g/dl (6.4-8.2)
== END 2020-04-09 15:30 | disposition home or self-care (01) ==
LOC: JER 12:03
DX: N93.9 Abnormal uterine and vaginal bleeding, unspecified (principal)
CPT/HCPCS: 36415; 76817-TC; 80053; 81003; 84702; 85025; 86850; 86900; 86901; 87086; 99284-25

== ENCOUNTER 2020-05-18 07:31 | Emergency (ER) | payer OTHER ==
[2020-05-18 07:53] VITALS: BMI 33.4
--- OUTSIDE RECORDS SUMMARY | 2020-05-18 07:55 | XMS ---
:1985 Author Organization [facility] Support Name Relationship Address Phone SAMMIE HILTON PARTNER [address] [place] [address] ZOILA SCHWARTZE Unavailable [address] [place] [address] ZOILA NIEVES Unavailable [address] [place] [address] LUCIANO TRINH PINTO [address] [facility] [place] [address] Re-disclosure Warning The records that you are about to access may contain information from federally- assisted alcohol or drug abuse programs. If such information is present, then the following federally mandated warning applies: This information has been disclosed to you from records protected by federal confidentiality rules (42 CFR part 2). The federal rules prohibit you from making any further disclosure of this information unless further disclosure is expressly permitted by the written consent of the person to whom it pertains or as otherwise permitted by 42 CFR part 2. A general authorization for the release of medical or other information is NOT sufficient for this purpose. The Federal rules restrict any use of the information to criminally investigate or prosecute any alcohol or drug abuse patient.The records that you are about to access may contain highly sensitive health information, the redisclosure of which is protected by Article 27-F of the [facility] Public Health law. If you continue you may haveaccess to information: Regarding HIV / AIDS; Provided by facilities licensed or operated by the [facility] Office of Mental Health; or Provided by the [facility] Office for People With Developmental Disabilities. If such information is present, then the following [facility] mandated warning applies: This information has been disclosed to you from confidential records which are protected by state law. State law prohibits you from making any further disclosure of this information without the specific written consent of the person to whom it pertains, or as otherwise permitted by law. Any unauthorized further disclosure in violation of state law may result in a fine or long term sentence or both. A general authorization for the release of medical or other information is NOT sufficient authorization for further disclosure. Insurance Providers Payer name Policy type Policy ID Covered Covered republican's Policy P tom / Coverage republican ID relationship to [place] [employer] [place] [id number] HMO MEDICAID [id number] SP [id number] [employer] MED[place] [id number] HMO MEDICAID [id number] SP [id number] [place] [id number] [place] [id number] [facility] [place]
[2020-05-18] MEDS ORDERED: ONDANSETRON 4 MG/2 ML VIAL IVPUSH ONE ×2 (08:07→12:28)
[2020-05-18] MEDS ORDERED: morphine CARPU-JECT 4 MG/1 ML DISP.SYRIN IVPUSH ONE (08:07)
[2020-05-18] MEDS ORDERED: LACTATED RINGERS SOLUTION 1,000 ML/1,000 ML INFUS.BAG IV STA ×2 (08:08→11:43)
[2020-05-18] MEDS ORDERED: FAMOTIDINE 20 MG/50 ML IVPB 20 MG/50 ML MG IVPB ONE (08:11)
[2020-05-18] MEDS ORDERED: morphine SULFATE 4 MG/ML VIAL ONE (08:11)
[2020-05-18 09:12] LABS: BASO % 0.4 % (0-2.0); EOS % 0.5 % (0-4.5); HEMATOCRIT 42.6 % (32.4-45.2); HEMOGLOBIN 13.9 GM/dL (10.7-15.3); LYMPH % 4.9 % (8-40); MCH 26.8 pg (25.7-33.7); MCHC 32.6 g/dl (32.0-36.0); MEAN CELL VOLUME 82.4 fl (80-96); MEAN PLT VOLUME 8.3 fl (7.5-11.1); MONO % 2.9 % (3.8-10.2); NEUT % 91.3 % (42.8-82.8); PLATELET COUNT 306 K/MM3 (134-434); RBC 5.17 M/mm3 (3.60-5.2); RDW 12.9 % (11.6-15.6)
[2020-05-18 09:25] LABS: POTASSIUM 4.3 mmol/L (3.5-5.1)
[2020-05-18 09:27] LABS: BLOOD UREA NITROGEN 13.7 mg/dL (7-18); CALCIUM 9.6 mg/dL (8.5-10.1); MAGNESIUM 2.2 mg/dL (1.8-2.4)
[2020-05-18 09:30] LABS: CREATININE 0.7 mg/dL (0.55-1.3)
[2020-05-18 09:32] LABS: BILIRUBIN,TOTAL 0.5 mg/dL (0.2-1); TOT PROT 7.8 g/dl (6.4-8.2)
--- NOTE | 2020-05-18 09:51 | PDOC ---
Documentation entered by Sharad Last SCRIBE, acting as scribe for Norberto Weldon MD. Norberto Weldon MD: This documentation has been prepared by the Shala goodwin Xhesika, SCRIBE, under my direction and personally reviewed by me in its entirety. I confirm that the documentation accurately reflects all work, treatment, procedures, and medical decision making performed by me. History of Present Illness - General Chief Complaint: Nausea/Vomiting Stated Complaint: ABD PAIN,WEAKNESS History Source: Patient Exam Limitations: No Limitations - History of Present Illness Initial Comments: 05/18/20 08:05 The patient is a 34y/o F with a PMH of Ruptured left tubal ectopic causing hemoperitoneum and recent saline ultrasound on 05/13/20 who presents to the ED with diffuse upper abdominal pain and greenish/yellow emesis since 2am. Pt reports associated generalized weakness, chills and diarrhea. Pt states her pain feels similar to her gallbladder pain even though she had a cholecystectomy in 2009. The patient denies chest pain, shortness of breath, headache and dizziness. Denies fever, chills, cough. Denies dysuria, frequency, urgency and hematuria. Allergies: NKDA Past surgical history:cholecystectomy PCP: Angelica Russ Past History - Medical History Allergies/Adverse Reactions: Allergies Allergy/AdvReac Type Severity Reaction Status Date / Time No Known Allergies Allergy Verified 05/18/20 07:53 Home Medications: Ambulatory Orders Pantoprazole Sodium [Protonix -] 40 mg PO DAILY #30 tablet.ec 05/18/20 Sucralfate [Carafate -] 1 gm PO TID #30 tablet 05/18/20 Anemia: No Asthma: No Cancer: No Cardiac Disorders: No CVA: No COPD: No CHF: No Dementia: No Diabetes: No Disorders: No HTN: No Hypercholesterolemia: No Liver Disease: No Seizures: No Thyroid Disease: No - Surgical History Cardiac Surgery: No Cholecystectomy: Yes Lung Surgery: No Neurologic Surgery: No - Reproductive History Is Patient Now?: No Spontaneous : 1 - Immunization History Immunization Up to Date: Yes - Psycho-Social/Smoking History Smoking Status: No Smoking History: Never smoked Have you smoked in the past 12 months: No Number of Cigarettes Smoked Daily: 0 Information on smoking cessation initiated: No - Substance Abuse Hx (Audit-C & DAST Scrn) How often the patient has a drink containing alcohol: 4 0r more times/wk Number of drinks the patient has on a typical day: 1 or 2 How often the patient has six or more drinks on one occasion: Monthly Score: In Men: 4 or > Positive; In Women: 3 or > Positive: 6 Screen Result (Pos requires Nsg. Audit-10AR): Positive In the last yr the pt used illegal drug/Rx for NonMed reason: No Score: Yes response is considered Positive: 0 Screen Result (Positive result requires Nsg. DAST-10): Negative Review of Systems - Review of Systems Able to Perform ROS?: Yes Comments:: 05/18/20 08:09 CONSTITUTIONAL: No fever,+chills. +generalized weakness EYES: No visual changes ENT: No ear pain, no sore throat CARDIOVASCULAR: No chest pain, no palpitations RESPIRATORY: No cough, no SOB GI: +diffuse upper abdominal pain, + vomiting, +diarrhea. no constipation, GENITOURINARY: No dysuria, no frequency, no hematuria MUSKULOSKELETAL: No back pain, no joint pain, no myalgias SKIN: No rash NEURO: No headache *Physical Exam - Vital Signs Last Vital Signs Temp Pulse Resp BP Pulse Ox 98.3 F 111 H 23 H 133/94 100 05/18/20 07:45 05/18/20 07:45 05/18/20 07:45 05/18/20 07:45 05/18/20 07:45 ED Treatment Course - LABORATORY CBC & Chemistry Diagram: 05/18/20 08:45 05/18/20 08:45 Medical Decision Making - Medical Decision Making 05/18/20 09:49 34-year-old female with history of recently ruptured ectopic presents with diffuse abdominal pain, most pronounced in the epigastrium radiating posteriorly, burning and character with nausea and numerous episodes of partially bilious vomiting. In the ED, patient is noted to be in moderate distress with epigastric and right upper quadrant tenderness to deep palpation, slightly decreased breath sounds but no guarding or rebound. CBC reveals mild leukocytosis with predominance of neutrophils. CMP reveals no evidence of hepatitis or pancreatitis. Electrolytes are within normal limit. Will obtain right upper quadrant ultrasound to evaluate for fatty liver versus retained stone. Will administer H2 blockers and Zofran. Will administer IV fluids. Will reassess. 05/18/20 16:11 Patient reports mild improvement in level of her symptoms. CT of abdomen pelvis revealed no evidence of acute intra-abdominal pathology. Urinalysis reveals no evidence of pyuria. Lipase x2 is within normal limit. Right upper quadrant ultrasound reveals fatty liver but no other pathology. Questionable hemangioma noted. I do not suspect retained gallbladder stone or acute appendicitis at this time. I suspect gastritis. Advised patient to cease consuming alcohol, spicy foods. Will discharge on Protonix, Pepcid and Carafate with GI follow-up. Patient expressed understanding. Patient currently tolerates p.o. Discharge - Discharge Information Problems reviewed: Yes Clinical Impression/Diagnosis: Abdominal pain Qualifiers: Abdominal location: epigastric Qualified Code(s): R10.13 - Epigastric pain Condition: Stable Disposition: HOME - Additional Discharge Information Prescriptions: Pantoprazole Sodium [Protonix -] 40 mg PO DAILY #30 tablet.ec - Follow up/Referral Referrals: Angelica Stone MD [Primary Care Provider] - Marco A Hayden MD [Staff Physician] - - Patient Discharge Instructions Patient Printed Discharge Instructions: DI for Nausea -- Adult, DI for Vomiting -- Adult, DI for Abdominal Pain-Adult Additional Instructions: Please take Protonix in the morning 1 hour prior to eating. Take Pepcid-20 mg at night. Take Carafate 3 times a day as needed. Follow-up with gastroenterology. Stop drinking. Return to the ER for intractable vomiting or severe pain. - Post Discharge Activity
[2020-05-18 10:34] LABS: ANISOCYTOSIS 0; MACROCYTOSIS 0; PLATELET ESTIMATE NORMAL
[2020-05-18] MEDS ORDERED: morphine CARPU-JECT 2 MG/1 ML DISP.SYRIN IVPUSH ONE (14:44)
[2020-05-18] MEDS ORDERED: MORPHINE SULFATE 2 MG/ML VIAL ONE (14:45)
[2020-05-18] MEDS ORDERED: SUCRALFATE 1 GM TABLET (FP) PO ONE (15:00)
[2020-05-18] MEDS ORDERED: SUCRALFATE 1 GM TABLET (FP) ONE (15:04)
[2020-05-18 15:54] LABS: URINE APPEARANCE CLEAR; URINE BILIRUBIN NEGATIVE (NEGATIVE); URINE COLOR YELLOW; URINE GLUCOSE (UA) NEGATIVE (NEGATIVE); URINE KETONE NEGATIVE (NEGATIVE); URINE LEUK ESTERASE NEGATIVE (NEGATIVE); URINE NITRITE NEGATIVE (NEGATIVE); URINE PROTEIN NEGATIVE (NEGATIVE); URINE UROBILINOGEN 0.2 mg/dL (0.2-1.0)
[2020-05-18 16:14] VITALS: BP 104/57; PULSE 89; TEMP 98.9
== END 2020-05-18 16:38 | disposition home or self-care (01) ==
LOC: JER 07:31
PROC: 3E033NZ Introduction of Analgesics, Hypnotics, Sedatives into Peripheral Vein, Percutaneous Approach (ICD-10-PCS; principal; 2020-05-18)
PROC: 3E033GC Introduction of Other Therapeutic Substance into Peripheral Vein, Percutaneous Approach (ICD-10-PCS; 2020-05-18)
DX: R10.13 Epigastric pain (principal)
CPT/HCPCS: 36415; 74177-TC; 76705-TC; 80053; 81003; 83690; 83735; 84703; 85025; 99285-25

== ENCOUNTER 2020-10-13 08:28 | Emergency (ER) | payer OTHER ==
[2020-10-13 08:32] VITALS: BMI 36.5
[2020-10-13] MEDS ORDERED: SODIUM CHLORIDE 1,000 ML IV STA (09:14)
[2020-10-13 10:12] LABS: BASO % 0.5 % (0-2.0); EOS % 1.5 % (0-4.5); HEMATOCRIT 35.9 % (32.4-45.2); HEMOGLOBIN 11.9 GM/dL (10.7-15.3); LYMPH % 26.1 % (8-40); MCHC 33.2 g/dl (32.0-36.0); MEAN CELL VOLUME 81.4 fl (80-96); MEAN PLT VOLUME 8.4 fl (7.5-11.1); MONO % 6.4 % (3.8-10.2); NEUT % 65.5 % (42.8-82.8); PLATELET COUNT 293 K/MM3 (134-434); RBC 4.41 M/mm3 (3.60-5.2); RDW 13.8 % (11.6-15.6); WHITE BLOOD COUNT 7.7 K/mm3 (4.0-10.0)
[2020-10-13 10:29] LABS: POTASSIUM 3.8 mmol/L (3.5-5.1)
[2020-10-13 10:31] LABS: BLOOD UREA NITROGEN 9.7 mg/dL (7-18); CALCIUM 8.9 mg/dL (8.5-10.1)
[2020-10-13 10:32] LABS: ALBUMIN 3.4 g/dl (3.4-5.0)
[2020-10-13 10:34] LABS: CREATININE 0.7 mg/dL (0.55-1.3)
[2020-10-13 10:36] LABS: BILIRUBIN,TOTAL 0.2 mg/dL (0.2-1); TOT PROT 6.9 g/dl (6.4-8.2)
[2020-10-13 10:42] LABS: PH,URINE 6.5 (5.0-8.0); URINE APPEARANCE CLEAR; URINE BILIRUBIN NEGATIVE (NEGATIVE); URINE COLOR YELLOW; URINE GLUCOSE (UA) NEGATIVE (NEGATIVE); URINE KETONE NEGATIVE (NEGATIVE); URINE PROTEIN NEGATIVE (NEGATIVE); URINE UROBILINOGEN 0.2 mg/dL (0.2-1.0)
[2020-10-13 10:43] LABS: URINE LEUK ESTERASE NEGATIVE (NEGATIVE); URINE NITRITE NEGATIVE (NEGATIVE)
[2020-10-13 13:53] VITALS: BP 121/72; PULSE 82; TEMP 98.1
== END 2020-10-13 13:30 | disposition home or self-care (01) ==
LOC: JER 08:28
PROC: 3E0337Z Introduction of Electrolytic and Water Balance Substance into Peripheral Vein, Percutaneous Approach (ICD-10-PCS; principal; 2020-10-13)
DX: R42 Dizziness and giddiness (principal); Z3A.01 Less than 8 weeks gestation of pregnancy
CPT/HCPCS: 36415; 76817-TC; 80053; 81003; 84702; 85025; 87086; 99284-25

== ENCOUNTER 2021-05-25 19:28 | Inpatient (IN) | payer OTHER ==
[2021-05-25 20:18] VITALS: BMI 39.9
[2021-05-25 20:30] LABS: BASO % 0.3 % (0-2.0); EOS % 0.4 % (0-4.5); HEMATOCRIT 33.4 % (32.4-45.2); HEMOGLOBIN 11.1 GM/dL (10.7-15.3); LYMPH % 22.4 % (8-40); MCH 26.2 pg (25.7-33.7); MCHC 33.4 g/dl (32.0-36.0); MEAN CELL VOLUME 78.6 fl (80-96); MEAN PLT VOLUME 8.3 fl (7.5-11.1); MONO % 5.5 % (3.8-10.2); NEUT % 71.4 % (42.8-82.8); PLATELET COUNT 275 10^3/uL (134-434); RBC 4.25 M/mm3 (3.60-5.2); RDW 16.1 % (11.6-15.6); WHITE BLOOD COUNT 9.6 K/mm3 (4.0-10.0)
[2021-05-25] MEDS: ELECTROLYTE-148 SOLN 1,000 ML IV SCH (20:30)
[2021-05-25 20:34] LABS: INR 0.97 (0.83-1.09); PROTHROMBIN TIME (PATIENT) 11.3 SEC (9.7-13.0)
[2021-05-25 20:36] LABS: ACTIVATED PTT 26.8 SECONDS (25.2-36.5)
[2021-05-25 20:52] LABS: CALCIUM 8.8 mg/dL (8.5-10.1)
[2021-05-25 20:53] LABS: BLOOD UREA NITROGEN 9.4 mg/dL (7-18)
[2021-05-25 20:56] LABS: CREATININE 0.6 mg/dL (0.55-1.3)
[2021-05-25] MEDS ORDERED: ONDANSETRON 4 MG/2 ML VIAL IVPUSH PRN (21:06)
[2021-05-25] MEDS ORDERED: morphine SULFATE (PF) 1 MG/2 ML SYRINGE ONE (21:13)
[2021-05-25] MEDS ORDERED: ceFAZolin SODIUM 1 GM VIAL ONE (21:28)
[2021-05-25] MEDS ORDERED: ONDANSETRON 4 MG/2 ML VIAL ONE (21:28)
[2021-05-25] MEDS ORDERED: PHENYLEPHRINE HCL 10 MG/1 ML SINGLE DOSE VIAL ONE (21:30)
[2021-05-25] MEDS ORDERED: OXYTOCIN 10 UNIT/ML 10ML MDV ONE (21:48)
[2021-05-25 22:48] LABS: CORD BASE EXCESS -4.9 mmol/L (0-2); CORD HCO3 21.3 mmHg (20-29); CORD PCO2 43.2 mmHg (30-78); CORD pH 7.31 (7.14-7.44)
[2021-05-25 22:48] LABS: CORD HCO3 23.8 mmHg (20-29); CORD PCO2 57.4 mmHg (30-78); CORD pH 7.235 (7.14-7.44)
[2021-05-25] MEDS ORDERED: METHYLERGONOVINE MALEATE 0.2 MG/1 ML AMP IM PRN (22:50)
[2021-05-25] MEDS ORDERED: IBUPROFEN 800 MG/8 ML IJ IVPB PRN (22:50)
[2021-05-25] MEDS ORDERED: BENZOCAINE 28 GM HEMORRHOIDAL OINTMENT TP PRN (22:50)
[2021-05-25] MEDS ORDERED: WITCH HAZEL 50% (TUCKS) 40 PAD/JAR PAD TP PRN (22:50)
[2021-05-25] MEDS ORDERED: IBUPROFEN 600 MG TABLET (FP) PO PRN (22:50)
[2021-05-25] MEDS ORDERED: BENZOCAINE 20% 57 GM BOTTLE TP PRN (22:50)
[2021-05-25] MEDS: OXYTOCIN 20 UNITS in 0.9% NS 20 UNIT/1,000 ML INFUS.BAG IV SCH (23:00)
[2021-05-25] MEDS ORDERED: OXYTOCIN 20 UNITS in 0.9% NS 20 UNIT/1,000 ML INFUS.BAG IV ONE (23:56)
[2021-05-26] MEDS: SIMETHICONE 80 MG TAB.CHEW (FP) PO PRN ×2 (08:16→20:43)
[2021-05-26 08:51] LABS: BASO % 0.5 % (0-2.0); EOS % 0.3 % (0-4.5); HEMATOCRIT 29.2 % (32.4-45.2); HEMOGLOBIN 9.9 GM/dL (10.7-15.3); LYMPH % 19.9 % (8-40); MCH 26.5 pg (25.7-33.7); MCHC 34.1 g/dl (32.0-36.0); MEAN CELL VOLUME 77.8 fl (80-96); MEAN PLT VOLUME 8.2 fl (7.5-11.1); MONO % 6.6 % (3.8-10.2); NEUT % 72.7 % (42.8-82.8); PLATELET COUNT 239 10^3/uL (134-434); RBC 3.75 M/mm3 (3.60-5.2); RDW 16.2 % (11.6-15.6); WHITE BLOOD COUNT 10.3 K/mm3 (4.0-10.0)
[2021-05-26] MEDS: PRENATAL VITAMINS W/ FOLIC ACID TABLET (FP) PO SCH (10:17)
[2021-05-26] MEDS: ENOXAPARIN NA (PORCINE) 40 MG/0.4 ML DISP.SYRIN SQ SCH (10:17)
[2021-05-26] MEDS: oxyCODONE HCL 5 MG TABLET PO PRN ×2 (10:45→20:43)
[2021-05-26] MEDS: SENNOSIDES/DOCUSATE COMBO (SENNA PLUS) TABLET (UD) PO PRN (20:44)
[2021-05-26] MEDS: ELECTROLYTE-148 SOLN 1,000 ML IV SCH (20:45)
[2021-05-26] MEDS ORDERED: BISACODYL 10 MG SUPP.RECT RC PRN (22:50)
[2021-05-27] MEDS: ACETAMINOPHEN 325 MG TABLET (FP) PO PRN ×4 (01:50→21:19)
[2021-05-27] MEDS: oxyCODONE HCL 5 MG TABLET PO PRN ×3 (01:50→17:43)
[2021-05-27] MEDS: SIMETHICONE 80 MG TAB.CHEW (FP) PO PRN ×3 (01:52→21:18)
[2021-05-27] MEDS: OXYTOCIN 20 UNITS in 0.9% NS 20 UNIT/1,000 ML INFUS.BAG IV SCH (06:15)
[2021-05-27] MEDS: ENOXAPARIN NA (PORCINE) 40 MG/0.4 ML DISP.SYRIN SQ SCH (09:19)
[2021-05-27] MEDS: PRENATAL VITAMINS W/ FOLIC ACID TABLET (FP) PO SCH (10:53)
[2021-05-27] MEDS: SENNOSIDES/DOCUSATE COMBO (SENNA PLUS) TABLET (UD) PO PRN (21:18)
[2021-05-27 22:13] VITALS: BP 101/68
[2021-05-28] MEDS: oxyCODONE HCL 5 MG TABLET PO PRN ×2 (00:43→12:53)
[2021-05-28] MEDS: ENOXAPARIN NA (PORCINE) 40 MG/0.4 ML DISP.SYRIN SQ SCH (09:09)
[2021-05-28] MEDS: PRENATAL VITAMINS W/ FOLIC ACID TABLET (FP) PO SCH (09:09)
[2021-05-28] MEDS: ACETAMINOPHEN 325 MG TABLET (FP) PO PRN (09:37)
[2021-05-28 10:33] VITALS: PULSE 94; TEMP 98.3
[2021-05-28 11:41] LABS: BASO % 0.4 % (0-2.0); EOS % 1.9 % (0-4.5); HEMATOCRIT 26.8 % (32.4-45.2); HEMOGLOBIN 8.9 GM/dL (10.7-15.3); LYMPH % 20.7 % (8-40); MCH 26.2 pg (25.7-33.7); MCHC 33.2 g/dl (32.0-36.0); MEAN CELL VOLUME 78.9 fl (80-96); MEAN PLT VOLUME 8.1 fl (7.5-11.1); MONO % 7.8 % (3.8-10.2); NEUT % 69.2 % (42.8-82.8); PLATELET COUNT 253 10^3/uL (134-434); RDW 16.4 % (11.6-15.6); WHITE BLOOD COUNT 8.9 K/mm3 (4.0-10.0)
[2021-05-28] MEDS: SIMETHICONE 80 MG TAB.CHEW (FP) PO PRN (12:53)
== END 2021-05-28 14:50 | disposition home or self-care (01) | DRG 540 ==
LOC: JLDR 19:28 → J3W 05-26 00:39
PROVIDERS: ADMIT Obstetrics & Gynecology; ATTEND Obstetrics & Gynecology
PROC: 10D00Z1 Extraction of Products of Conception, Low, Open Approach (ICD-10-PCS; principal; 2021-05-25)
DX: O41.03X0 Oligohydramnios, third trimester, not applicable or unspecified (principal); O34.219 Maternal care for unspecified type scar from previous cesarean delivery; O99.214 Obesity complicating childbirth; E66.9 Obesity, unspecified; Z3A.37 37 weeks gestation of pregnancy; Z37.0 Single live birth
CPT/HCPCS: 36415; 36600; 80048; 82803; 85025; 85610; 85730; 86780; 86850; 86900; 86901; 88307-TC

== ENCOUNTER 2022-06-04 07:20 | Inpatient (IN) | payer OTHER ==
[2022-06-04] MEDS ORDERED: ELECTROLYTE-148 SOLN 1,000 ML IV ONE (07:50)
[2022-06-04] MEDS ORDERED: ELECTROLYTE-148 SOLN 1,000 ML IV SCH (08:20)
[2022-06-04 08:34] LABS: BASO % 0.7 % (0-2.0); EOS % 1.9 % (0-4.5); HEMATOCRIT 34.3 % (32.4-45.2); LYMPH % 25.3 % (8-40); MCH 23.9 pg (25.7-33.7); MCHC 32.1 g/dl (32.0-36.0); MEAN CELL VOLUME 74.5 fl (80-96); MONO % 5.7 % (3.8-10.2); NEUT % 66.4 % (42.8-82.8); PLATELET COUNT 286 10^3/uL (134-434); RDW 15.5 % (11.6-15.6); WHITE BLOOD COUNT 8.2 K/mm3 (4.0-10.0)
[2022-06-04 08:41] LABS: INR 1.02 (0.83-1.09); PROTHROMBIN TIME (PATIENT) 11.7 SEC (9.7-13.0)
[2022-06-04 08:44] LABS: ACTIVATED PTT 27.2 SECONDS (25.2-36.5)
[2022-06-04 08:49] VITALS: BMI 36.6
[2022-06-04 09:11] LABS: CALCIUM 8.5 mg/dL (8.5-10.1)
[2022-06-04 09:12] LABS: BLOOD UREA NITROGEN 8.5 mg/dL (7-18)
[2022-06-04 09:15] LABS: CREATININE 0.6 mg/dL (0.55-1.3)
[2022-06-04] MEDS ORDERED: morphine SULFATE/PF 1 MG/2 ML (2cc Syringe - QUVA) ONE (09:25)
[2022-06-04] MEDS ORDERED: ceFAZolin SODIUM 1 GM VIAL ONE (09:48)
[2022-06-04] MEDS ORDERED: ONDANSETRON 4 MG/2 ML VIAL ONE (09:48)
[2022-06-04] MEDS ORDERED: PHENYLEPHRINE HCL 10 MG/1 ML SINGLE DOSE VIAL ONE (09:48)
[2022-06-04] MEDS ORDERED: KETOROLAC TROMETHAMINE 30 MG/1 ML VIAL ONE (09:58)
[2022-06-04] MEDS ORDERED: OXYTOCIN 10 UNIT/ML 10ML MDV ONE (09:58)
[2022-06-04] MEDS ORDERED: WITCH HAZEL 50% (TUCKS) 40 PAD/JAR PAD TP PRN (11:05)
[2022-06-04] MEDS ORDERED: METHYLERGONOVINE MALEATE 0.2 MG/1 ML AMP IM PRN (11:05)
[2022-06-04] MEDS ORDERED: SENNOSIDES/DOCUSATE COMBO (SENNA PLUS) TABLET (UD) PO PRN (11:05)
[2022-06-04] MEDS ORDERED: IBUPROFEN 600 MG TABLET (FP) PO PRN ×2 (11:05→11:36)
[2022-06-04] MEDS ORDERED: CITRIC ACID/SODIUM CITRATE 30 ML UNIT-DOSE CUP PO ONE (11:05)
[2022-06-04] MEDS ORDERED: IBUPROFEN 800 MG/8 ML IJ IVPB PRN (11:05)
[2022-06-04] MEDS ORDERED: ACETAMINOPHEN 325 MG TABLET (FP) PO PRN ×2 (11:05→11:36)
[2022-06-04] MEDS ORDERED: ONDANSETRON 4 MG/2 ML VIAL IVPUSH PRN (11:36)
[2022-06-04] MEDS ORDERED: morphine SULFATE/PF 1 MG/2 ML (2cc Syringe - QUVA) IT ONE (11:36)
[2022-06-04] MEDS ORDERED: ACETAMINOPHEN 1000 MG/100 ML BAG IVPB ONE (11:39)
[2022-06-04] MEDS ORDERED: OXYTOCIN 20 UNITS in 0.9% NS 20 UNIT/1,000 ML INFUS.BAG IV ONE (12:14)
[2022-06-04] MEDS ORDERED: ACETAMINOPHEN INJECTION 100 ML IVPB ONE (12:14)
[2022-06-04 12:20] LABS: HIV INTERPRETATION NEGATIVE (NEGATIVE)
[2022-06-04] MEDS: OXYTOCIN 20 UNITS in 0.9% NS 20 UNIT/1,000 ML INFUS.BAG IV SCH ×2 (12:45→21:43)
[2022-06-04] MEDS ORDERED: diphenhydrAMINE HCL 25 MG CAPSULE (FP) PO ONE (20:45)
[2022-06-04] MEDS ORDERED: diphenhydrAMINE HCL 25 MG CAPSULE (FP) PO PRN (22:00)
[2022-06-05] MEDS: oxyCODONE HCL 5 MG TABLET PO PRN ×4 (05:29→22:21)
[2022-06-05] MEDS: SIMETHICONE 80 MG TAB.CHEW (FP) PO PRN ×4 (05:29→22:21)
[2022-06-05 08:19] LABS: BASO % 0.6 % (0-2.0); EOS % 1.7 % (0-4.5); HEMATOCRIT 27.7 % (32.4-45.2); HEMOGLOBIN 9.2 GM/dL (10.7-15.3); LYMPH % 18.1 % (8-40); MCH 24.6 pg (25.7-33.7); MCHC 33.3 g/dl (32.0-36.0); MEAN PLT VOLUME 7.7 fl (7.5-11.1); MONO % 6.4 % (3.8-10.2); NEUT % 73.2 % (42.8-82.8); PLATELET COUNT 230 10^3/uL (134-434); RBC 3.74 M/mm3 (3.60-5.2); RDW 15.4 % (11.6-15.6); WHITE BLOOD COUNT 8.5 K/mm3 (4.0-10.0)
[2022-06-05] MEDS: PRENATAL VITAMINS W/ FOLIC ACID TABLET (FP) PO SCH (10:37)
[2022-06-05] MEDS: ENOXAPARIN NA (PORCINE) 40 MG/0.4 ML DISP.SYRIN SQ SCH (10:38)
[2022-06-05] MEDS ORDERED: BISACODYL 10 MG SUPP.RECT RC PRN (11:05)
[2022-06-05 13:26] VITALS: RESP 18
[2022-06-05] MEDS: OXYTOCIN 20 UNITS in 0.9% NS 20 UNIT/1,000 ML INFUS.BAG IV SCH (20:15)
[2022-06-06] MEDS: oxyCODONE HCL 5 MG TABLET PO PRN ×4 (04:06→20:57)
[2022-06-06] MEDS: SIMETHICONE 80 MG TAB.CHEW (FP) PO PRN ×2 (04:06→21:05)
[2022-06-06] MEDS: ENOXAPARIN NA (PORCINE) 40 MG/0.4 ML DISP.SYRIN SQ SCH (09:32)
[2022-06-06] MEDS: PRENATAL VITAMINS W/ FOLIC ACID TABLET (FP) PO SCH (09:32)
[2022-06-07] MEDS: SIMETHICONE 80 MG TAB.CHEW (FP) PO PRN (03:33)
[2022-06-07] MEDS: oxyCODONE HCL 5 MG TABLET PO PRN (03:34)
[2022-06-07 08:48] VITALS: BP 114/78; PULSE 92; TEMP 97.7
[2022-06-07] MEDS: ENOXAPARIN NA (PORCINE) 40 MG/0.4 ML DISP.SYRIN SQ SCH (09:15)
[2022-06-07] MEDS: PRENATAL VITAMINS W/ FOLIC ACID TABLET (FP) PO SCH (09:15)
[2022-06-07 09:58] LABS: BASO % 0.3 % (0-2.0); EOS % 3.2 % (0-4.5); HEMATOCRIT 29.2 % (32.4-45.2); HEMOGLOBIN 9.6 GM/dL (10.7-15.3); LYMPH % 29.4 % (8-40); MCH 24.1 pg (25.7-33.7); MCHC 32.8 g/dl (32.0-36.0); MEAN CELL VOLUME 73.6 fl (80-96); MONO % 7.2 % (3.8-10.2); NEUT % 59.9 % (42.8-82.8); PLATELET COUNT 286 10^3/uL (134-434); RBC 3.97 M/mm3 (3.60-5.2); RDW 15.6 % (11.6-15.6); WHITE BLOOD COUNT 7.7 K/mm3 (4.0-10.0)
== END 2022-06-07 12:50 | disposition home or self-care (01) | DRG 540 ==
LOC: JLDR 07:20 → J3W 13:15
PROVIDERS: ADMIT Obstetrics & Gynecology; ATTEND Obstetrics & Gynecology
PROC: 10D00Z1 Extraction of Products of Conception, Low, Open Approach (ICD-10-PCS; principal; 2022-06-04)
DX: O34.211 Maternal care for low transverse scar from previous cesarean delivery (principal); O99.214 Obesity complicating childbirth; E66.01 Morbid (severe) obesity due to excess calories; O36.63X0 Maternal care for excessive fetal growth, third trimester, not applicable or unspecified; Z3A.37 37 weeks gestation of pregnancy; Z37.0 Single live birth; O99.02 Anemia complicating childbirth; D64.9 Anemia, unspecified; Z37.9 Outcome of delivery, unspecified
CPT/HCPCS: 36415; 80048; 85025; 85610; 85730; 86780; 86850; 86900; 86901; 87389; 88307-TC; C9803-CS; U0003; U0005

== ENCOUNTER 2023-07-02 12:10 | Emergency (ER) | payer OTHER ==
[2023-07-02 12:25] VITALS: BP 127/77; PULSE 86; RESP 17; TEMP 98.2; BMI 31.7
== END 2023-07-02 14:01 | disposition home or self-care (01) ==
LOC: JERFT 12:10
DX: J06.9 Acute upper respiratory infection, unspecified (principal); B34.9 Viral infection, unspecified; R09.81 Nasal congestion; R07.0 Pain in throat; R05.9 Cough, unspecified; M79.10 Myalgia, unspecified site; R50.81 Fever presenting with conditions classified elsewhere; Z20.822 Contact with and (suspected) exposure to COVID-19
CPT/HCPCS: 0241U-QW; 99283-25

== ENCOUNTER 2023-10-07 04:05 | Day surgery (SDC) | payer OTHER ==
[2023-10-04 12:52] VITALS: BMI 34.0
[2023-10-07] MEDS ORDERED: MIDAZOLAM HCL 2 MG/2 ML SINGLE DOSE VIAL ONE (14:03)
[2023-10-07] MEDS ORDERED: PROPOFOL 20 ML ONE (14:23)
[2023-10-07] MEDS ORDERED: ceFAZolin SODIUM 1 GM VIAL ONE (14:28)
[2023-10-07] MEDS ORDERED: ONDANSETRON 4 MG/2 ML VIAL ONE (14:28)
[2023-10-07] MEDS ORDERED: DEXAMETHASONE SOD PHOSPHATE 4 MG/1 ML VIAL ONE (14:28)
[2023-10-07] MEDS: ceFAZolin SODIUM 1 GM VIAL IVPB ONE (14:29)
[2023-10-07] MEDS ORDERED: ONDANSETRON 4 MG/2 ML VIAL IVPUSH PRN (14:50)
[2023-10-07] MEDS ORDERED: oxyCODONE HCL 5 MG TABLET PO PRN (14:50)
[2023-10-07] MEDS ORDERED: LACTATED RINGERS SOLUTION 1,000 ML IV SCH (15:00)
[2023-10-07] MEDS ORDERED: KETOROLAC TROMETHAMINE 30 MG/1 ML VIAL ONE (15:14)
[2023-10-07] MEDS: ACETAMINOPHEN INJECTION 100 ML IVPB ONE (15:20)
[2023-10-07] MEDS: ACETAMINOPHEN 1000 MG/100 ML BAG IVPB ONE (15:20)
[2023-10-07] MEDS: KETOROLAC TROMETHAMINE 30 MG/1 ML VIAL IVPUSH ONE (15:20)
[2023-10-07 17:35] VITALS: PULSE 64; RESP 16; TEMP 97.5
[2023-10-07 18:43] VITALS: BP 100/60
== END 2023-10-07 18:20 | disposition home or self-care (01) ==
LOC: JASU-SURG 04:05
PROVIDERS: ATTEND Obstetrics & Gynecology
PROC: 10D17ZZ Extraction of Products of Conception, Retained, Via Natural or Artificial Opening (ICD-10-PCS; principal; 2023-10-07 12:30)
DX: O07.39 Failed attempted termination of pregnancy with other complications (principal)
CPT/HCPCS: 81025; 88305-TC; 94760; J0131

== ENCOUNTER 2023-11-05 22:00 | Emergency (ER) | payer OTHER ==
[2023-11-05 22:06] VITALS: RESP 20; BMI 35.1
[2023-11-05] MEDS ORDERED: SODIUM CHLORIDE 0.9% 500 ML INFUS.BAG IV ONE (22:50)
[2023-11-05] MEDS ORDERED: SODIUM CHLORIDE IV ONE (22:53)
[2023-11-05 23:35] LABS: BASO % 0.2 % (0-2.0); EOS % 0.1 % (0-4.5); HEMOGLOBIN 12.1 GM/dL (10.7-15.3); LYMPH % 9.7 % (8-40); MCH 23.2 pg (25.7-33.7); MCHC 31.7 g/dl (32.0-36.0); MEAN CELL VOLUME 73.1 fl (80-96); MEAN PLT VOLUME 7.7 fl (7.5-11.1); MONO % 4.4 % (3.8-10.2); NEUT % 85.6 % (42.8-82.8); PLATELET COUNT 258 10^3/uL (134-434); RDW 15.4 % (11.6-15.6)
[2023-11-05 23:42] LABS: INR 1.02 (0.83-1.09); PROTHROMBIN TIME (PATIENT) 11.8 SEC (9.7-13.0)
[2023-11-05 23:45] LABS: ACTIVATED PTT 29.4 SECONDS (25.2-36.5)
[2023-11-05 23:47] LABS: VENOUS BASE EXCESS -2.2 mmol/L (-2-2); VENOUS PCO2 34.5 mmHg (38-52); VENOUS PH 7.416 (7.310-7.410)
[2023-11-05] MEDS: ACETAMINOPHEN 1000 MG/100 ML BAG IVPB ONE (23:52)
[2023-11-05] MEDS: SODIUM CHLORIDE 0.9% 500 ML INFUS.BAG IV ONE (23:53)
[2023-11-05] MEDS: ONDANSETRON *ODT* 4 MG TABLET SL ONE (23:53)
[2023-11-05] MEDS ORDERED: ONDANSETRON *ODT* 4 MG TABLET ONE (23:57)
[2023-11-05] MEDS ORDERED: ACETAMINOPHEN INJECTION 100 ML IVPB ONE (23:58)
[2023-11-06 00:09] LABS: CHLORIDE 106 mmol/L (98-107); POTASSIUM 3.9 mmol/L (3.5-5.1); SODIUM 135 mmol/L (136-145)
[2023-11-06] MEDS: SODIUM CHLORIDE 0.9% 500 ML INFUS.BAG IV ONE (00:10)
[2023-11-06 00:14] LABS: ALBUMIN 3.4 g/dl (3.4-5.0); ANION GAP 6 mmol/L (4-13); CALCIUM 8.4 mg/dL (8.5-10.1); CO2 24 mmol/L (21-32)
[2023-11-06 00:15] LABS: GLUCOSE,RANDOM 115 mg/dL (74-106)
[2023-11-06 00:17] LABS: CREATININE 0.8 mg/dL (0.55-1.3)
[2023-11-06 00:18] LABS: SGOT/AST 16 U/L (15-37); SGPT/ALT 16 U/L (13-61)
[2023-11-06 00:19] LABS: BILIRUBIN,TOTAL 0.3 mg/dL (0.2-1)
[2023-11-06 00:20] LABS: ALK PHOS 90 U/L (45-117)
[2023-11-06 00:29] LABS: BLOOD UREA NITROGEN 10.7 mg/dL (7-18)
[2023-11-06] MEDS ORDERED: KETOROLAC TROMETHAMINE 15 MG/ML VIAL ONE (02:08)
[2023-11-06] MEDS: KETOROLAC TROMETHAMINE 15 MG/ML VIAL IVPUSH ONE (02:15)
[2023-11-06] MEDS: LIDOCAINE 4% PATCH TP ONE (02:16)
[2023-11-06] MEDS ORDERED: LIDOCAINE 4% PATCH TP ONE (02:18)
[2023-11-06 03:08] LABS: EPI CELLS 27 /uL (0-25.1); HYALINE CASTS 0 /uL (0-3.1); URINE APPEARANCE CLEAR; URINE BILIRUBIN NEGATIVE (NEGATIVE); URINE COLOR YELLOW; URINE GLUCOSE (UA) NEGATIVE (NEGATIVE); URINE KETONE NEGATIVE (NEGATIVE); URINE LEUK ESTERASE NEGATIVE (NEGATIVE); URINE NITRITE NEGATIVE (NEGATIVE); URINE PROTEIN NEGATIVE (NEGATIVE); URINE RBC 30 /uL (0-23.9); URINE WBC 5 /uL (0-25.8)
[2023-11-06 03:13] LABS: URINE BACTERIA 53.5 /uL (0-1359)
[2023-11-06 05:23] VITALS: BP 108/59; PULSE 80; TEMP 98.5
[2023-11-06] MEDS ORDERED: ONDANSETRON *ODT* 4 MG TABLET ONE (06:18)
[2023-11-06] MEDS: ONDANSETRON 4 MG/2 ML VIAL IVPUSH ONE (06:24)
[2023-11-06] MEDS ORDERED: LIDOCAINE PATCH REMOVAL MC SCH (22:00)
== END 2023-11-06 06:12 | disposition home or self-care (01) ==
LOC: JER 22:00
PROC: 3E033NZ Introduction of Analgesics, Hypnotics, Sedatives into Peripheral Vein, Percutaneous Approach (ICD-10-PCS; principal; 2023-11-05)
PROC: 3E0333Z Introduction of Anti-inflammatory into Peripheral Vein, Percutaneous Approach (ICD-10-PCS; 2023-11-06)
PROC: 3E033GC Introduction of Other Therapeutic Substance into Peripheral Vein, Percutaneous Approach (ICD-10-PCS; 2023-11-06)
DX: R11.2 Nausea with vomiting, unspecified (principal); R19.7 Diarrhea, unspecified; R52 Pain, unspecified; K52.9 Noninfective gastroenteritis and colitis, unspecified; M54.50 Low back pain, unspecified; R10.9 Unspecified abdominal pain; Z20.822 Contact with and (suspected) exposure to COVID-19
CPT/HCPCS: 0241U-QW; 36415; 71045-TC-FY; 74177-TC; 76830-TC; 80053; 81003; 82550; 82803; 83605; 84484; 84702; 84703; 85025; 85610; 85730; 86850; 86900; 86901; 87040; 87086; 87491; 87591; 87661; 93005; 93010; 99285-25; J0131; Q0162

== ENCOUNTER 2024-04-16 11:44 | Emergency (ER) | payer OTHER ==
[2024-04-16 11:55] VITALS: BP 106/71; PULSE 94; RESP 16; TEMP 97.7; BMI 32.5
[2024-04-16] MEDS ORDERED: KETOROLAC TROMETHAMINE 30 MG/1 ML VIAL ONE (12:21)
[2024-04-16] MEDS: KETOROLAC TROMETHAMINE 30 MG/1 ML VIAL IM ONE (12:25)
== END 2024-04-16 13:18 | disposition home or self-care (01) ==
LOC: JERFT 11:44
PROC: 3E0133Z Introduction of Anti-inflammatory into Subcutaneous Tissue, Percutaneous Approach (ICD-10-PCS; principal; 2024-04-16)
DX: S92.511A Displaced fracture of proximal phalanx of right lesser toe(s), initial encounter for closed fracture (principal); W01.0XXA Fall on same level from slipping, tripping and stumbling without subsequent striking against object, initial encounter
CPT/HCPCS: 73630-TC-RT-FY; 99284-25

== ENCOUNTER 2024-10-31 00:49 | Emergency (ER) | payer OTHER ==
[2024-10-31 01:15] VITALS: BP 135/56; PULSE 97; RESP 18; TEMP 98.5; BMI 36.3
[2024-10-31] MEDS ORDERED: ACETAMINOPHEN INJECTION 100 ML ONE (02:05)
[2024-10-31] MEDS ORDERED: ONDANSETRON 4 MG/2 ML VIAL ONE (02:05)
[2024-10-31 02:14] LABS: ABSOLUTE IMMATURE GRANULOCYTES 0.03 x10^3/uL (0.0-0.031); BASOPHILS # 0.05 x10^3/uL (0.01-0.08); EOSINOPHILS # 0.08 x10^3/uL (0.04-0.36); HEMATOCRIT 37.4 % (34.1-44.9); HEMOGLOBIN 11.6 g/dL (11.2-15.7); MONOCYTE # 0.41 x10^3/uL (0.24-0.86); PLATELET COUNT 295 x10^3/uL (182-369); RDW 14.6 % (12.1-16.8)
[2024-10-31] MEDS: LACTATED RINGERS SOLUTION 1000 ML INFUS.BAG IV ONE (02:15)
[2024-10-31] MEDS: ONDANSETRON 4 MG/2 ML VIAL IVPUSH ONE (02:16)
[2024-10-31] MEDS: ACETAMINOPHEN 1000 MG/100 ML BAG IVPB ONE (02:16)
[2024-10-31 02:39] LABS: POTASSIUM 3.6 mmol/L (3.5-5.1)
[2024-10-31 02:42] LABS: CALCIUM 9.4 mg/dL (8.5-10.1)
[2024-10-31 02:43] LABS: ALBUMIN 3.9 g/dl (3.4-5.0); BLOOD UREA NITROGEN 10.3 mg/dL (7-18)
[2024-10-31 02:46] LABS: CREATININE 0.8 mg/dL (0.55-1.3)
[2024-10-31 02:47] LABS: BILIRUBIN,TOTAL 0.4 mg/dL (0.2-1); TOT PROT 7.6 g/dl (6.4-8.2)
== END 2024-10-31 03:30 | disposition home or self-care (01) ==
LOC: JER 00:49
PROC: 3E033NZ Introduction of Analgesics, Hypnotics, Sedatives into Peripheral Vein, Percutaneous Approach (ICD-10-PCS; principal; 2024-10-31)
PROC: 3E033GC Introduction of Other Therapeutic Substance into Peripheral Vein, Percutaneous Approach (ICD-10-PCS; 2024-10-31)
DX: R10.84 Generalized abdominal pain (principal); R11.2 Nausea with vomiting, unspecified; R19.7 Diarrhea, unspecified
CPT/HCPCS: 36415; 80053; 83690; 83735; 85025; 99284-25; J0131

== ENCOUNTER 2025-01-19 12:16 | Emergency (ER) | payer OTHER ==
[2025-01-19 12:23] VITALS: RESP 20; TEMP 97.5; BMI 35.4
[2025-01-19 13:35] LABS: ABSOLUTE IMMATURE GRANULOCYTES 0.02 x10^3/uL (0.0-0.031); BASOPHILS # 0.05 x10^3/uL (0.01-0.08); EOSINOPHIL % 2.3 % (0.7-5.8); EOSINOPHILS # 0.15 x10^3/uL (0.04-0.36); HEMATOCRIT 37.9 % (34.1-44.9); HEMOGLOBIN 11.6 g/dL (11.2-15.7); MCHC 30.6 g/dl (32.2-35.5); MEAN CELL VOLUME 78.5 fl (79.4-94.8); MEAN PLT VOLUME 9.9 fl (9.4-12.3); MONOCYTE # 0.49 x10^3/uL (0.24-0.86); MONOCYTE % 7.5 % (4.7-12.5); PLATELET COUNT 332 x10^3/uL (182-369); RDW 14.8 % (12.1-16.8)
[2025-01-19 13:40] LABS: PH,URINE 7.5 (5.0-8.0); URINE APPEARANCE CLOUDY; URINE BILIRUBIN NEGATIVE (NEGATIVE); URINE COLOR YELLOW; URINE GLUCOSE (UA) NEGATIVE (NEGATIVE); URINE KETONE TRACE (NEGATIVE); URINE LEUK ESTERASE NEGATIVE (NEGATIVE); URINE NITRITE NEGATIVE (NEGATIVE); URINE PROTEIN NEGATIVE (NEGATIVE)
[2025-01-19 13:41] LABS: HCG,QUALITATIVE URINE Negative
[2025-01-19] MEDS: ACETAMINOPHEN 1000 MG/100 ML BAG IVPB ONE (14:00)
[2025-01-19] MEDS ORDERED: ACETAMINOPHEN INJECTION 100 ML ONE (14:05)
[2025-01-19 14:39] LABS: ALBUMIN 3.6 g/dl (3.4-5.0); BLOOD UREA NITROGEN 9.8 mg/dL (7-18); CALCIUM 9.3 mg/dL (8.5-10.1)
[2025-01-19 14:43] LABS: BILIRUBIN,TOTAL 0.3 mg/dL (0.2-1); CREATININE 0.7 mg/dL (0.55-1.3); TOT PROT 7.4 g/dl (6.4-8.2)
[2025-01-19] MEDS ORDERED: KETOROLAC TROMETHAMINE 15 MG/ML VIAL ONE (14:47)
[2025-01-19] MEDS: KETOROLAC TROMETHAMINE 15 MG/ML VIAL IVPUSH ONE (14:52)
[2025-01-19 15:31] LABS: HIV INTERPRETATION NEGATIVE (NEGATIVE)
[2025-01-19 15:32] LABS: HCV DIAGNOSTIC IN-HOUSE W/RFLX NON-REACTIVE (NONREACTIVE)
[2025-01-19 16:23] VITALS: BP 108/62; PULSE 64
== END 2025-01-19 16:58 | disposition home or self-care (01) ==
LOC: JER 12:16
PROC: 3E033NZ Introduction of Analgesics, Hypnotics, Sedatives into Peripheral Vein, Percutaneous Approach (ICD-10-PCS; principal; 2025-01-19)
PROC: 3E0333Z Introduction of Anti-inflammatory into Peripheral Vein, Percutaneous Approach (ICD-10-PCS; 2025-01-19)
DX: R10.11 Right upper quadrant pain (principal); R10.31 Right lower quadrant pain; R11.2 Nausea with vomiting, unspecified
CPT/HCPCS: 36415; 74177-TC; 80053; 81003; 84703; 85025; 86803; 87086; 87389; 87491; 87591; 87661; 96374; 96375; 99285-25; Q9967